=== PATIENT | male | born 1945 | race Caucasian/White ===

== ENCOUNTER 2016-11-02 19:29 | Inpatient (IN) | payer BC, MEDICARE ==
--- NOTE | 2016-11-02 20:13 | ED Physician Documentation ---
PD HPI CHEST PAIN - Stated complaint Stated Complaint: CHEST PX - Chief complaint Chief Complaint: Cardiac - History obtained from History obtained from: Patient, Family () - History of Present Illness Timing - onset: How many hours ago (2-3), Today Timing - onset during: Rest (he had onset of epigastric/substernal pressure type discomfort at rest while lying down. [place] some nausea, was pale and sweaty per , and had persistent of the discomfort despite sitting up, trying some bicarb.) Timing - duration: Hours (2-3) Timing - details: Abrupt onset, Still present Quality: Pressure, Aching, Dull, Indigestion Location: Substernal, Epigastric Radiation: No: Jaw, Neck, Back Improved by: No: Rest Worsened by: No: Inspiration, Movement, Palpation Associated symptoms: Diaphoresis, Nausea, Feeling faint / dizzy. No: Shortness of air, Vomiting, General Weakness, Palpitations, Cough Similar symptoms before: Has not had sx before Recently seen: Not recently seen Review of Systems Constitutional: denies: Fever, Chills, Myalgias Nose: denies: Rhinorrhea / runny nose, Congestion Throat: denies: Sore throat Cardiac: reports: Chest pain / pressure. denies: Palpitations, Pedal edema, Calf pain Respiratory: denies: Dyspnea, Cough, Wheezing GI: reports: Nausea. denies: Vomiting, Diarrhea, Hematemesis, Bloody / black stool : denies: Dysuria, Frequency Skin: denies: Rash, Lesions Neurologic: denies: Generalized weakness, Focal weakness, Numbness Psychiatric: denies: Insomnia Endocrine: reports: Easy bruising / bleeding. denies: Weight loss Immunocompromised: denies: Immunocompromised PD PAST MEDICAL HISTORY - Past Medical History Cardiovascular: Atrial fibrillation Respiratory: Sleep apnea GI: Cholelithiasis Other Past Medical History: Prostate cancer 200- surgery and radiation - Present Medications Home Medications: Ambulatory Orders Medication Instructions Recorded Confirmed Cyclobenzaprine [Flexeril] 1 tab PO TID 11/02/16 11/02/16 Metoprolol Succinate 1 tab PO DAILY 11/02/16 11/02/16 Rivaroxaban [Xarelto] 20 mg PO DAILY 11/02/16 11/02/16 - Allergies Allergies/Adverse Reactions: Allergies Allergy/AdvReac Type Severity Reaction Status Date / Time No Known Drug Allergies Allergy Verified 11/02/16 19:45 - Social History Does the pt smoke?: No Smoking Status: Never smoker Does the pt drink ETOH?: Yes Does the pt have substance abuse?: No - Family History Family history: reports: CAD - Immunizations Immunizations are current?: Yes - POLST Patient has POLST: No PD ED PE NORMAL - Vitals Vital signs reviewed: Yes - General General: Alert and oriented X 3, Well developed/nourished, Other (appears uncomfortable, pale, and mildly diaphoretic. ) - HEENT HEENT: Ears normal, Moist mucous membranes, Pharynx benign - Neck Neck: Supple, no meningeal sign, No adenopathy - Cardiac Cardiac: RRR, No murmur, No rub - Respiratory Respiratory: No respiratory distress, Clear bilaterally - Abdomen Abdomen: Normal bowel sounds, Non distended, No organomegaly, Other (tender epigastric area without guarding nor percussion tenderness. ) - Back Back: No CVA TTP - Derm Derm: Warm and dry. 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, No motor deficit, Normal speech - Psych Psych: Normal mood Results - Vitals Vitals: Vital Signs - 24 hr 11/02/16 11/02/16 11/02/16 19:30 19:35 19:50 Temperature 36.8 C 35.6 C L Heart Rate 66 71 68 Respiratory 15 17 15 Rate Blood Pressure 161/87 H 161/87 H 153/75 H O2 Saturation 100 98 99 11/02/16 11/02/16 11/02/16 20:14 20:19 20:27 Temperature Heart Rate 65 63 66 Respiratory 17 12 18 Rate Blood Pressure 135/72 H 141/73 H 135/76 H O2 Saturation 100 99 97 11/02/16 11/02/16 11/02/16 20:34 20:45 21:04 Temperature Heart Rate 64 70 65 Respiratory 18 15 12 Rate Blood Pressure 126/77 126/77 114/65 O2 Saturation 96 95 94 11/02/16 11/02/16 11/02/16 21:17 21:43 22:55 Temperature Heart Rate 62 64 76 Respiratory 10 L 12 14 Rate Blood Pressure 116/65 103/70 133/79 H O2 Saturation 94 96 98 Oxygen O2 Source Room air - EKG (time done) presentation to ED Rhythm: NSR [place]: Normal Ischemia: Normal ST segments. No: ST elevation c/w ischemia, ST depression - Labs Labs: Laboratory Tests 11/02/16 11/02/16 11/02/16 19:40 19:40 19:40 WBC 10.1 RBC 5.47 Hgb 14.8 Hct 45.9 MCV 84.1 MCH 27.1 MCHC 32.3 RDW 13.4 Plt Count 212 MPV 9.3 Neut # 6.9 H Lymph # 2.0 [place] # 0.9 Eos # 0.2 Baso # 0.1 Absolute Nucleated RBC 0.00 Nucleated RBCs 0.0 Sodium 134 L Potassium 3.7 Chloride 100 L Carbon Dioxide 26 Anion Gap 8.0 BUN 16 Creatinine 1.0 Estimated GFR (MDRD) 74 L Glucose 151 H Calcium 8.9 Total Bilirubin 0.6 AST 23 ALT 21 Alkaline Phosphatase 69 Troponin I 0.05 B-Natriuretic Peptide Total Protein 7.2 Albumin 3.6 Globulin 3.6 Albumin/Globulin Ratio 1.0 Lipase 22 11/02/16 19:40 WBC RBC Hgb Hct MCV MCH MCHC RDW Plt Count MPV Neut # Lymph # [place] # Eos # Baso # Absolute Nucleated RBC Nucleated RBCs Sodium Potassium Chloride Carbon Dioxide Anion Gap BUN Creatinine Estimated GFR (MDRD) Glucose Calcium Total Bilirubin AST ALT Alkaline Phosphatase Troponin I B-Natriuretic Peptide 38 Total Protein Albumin Globulin Albumin/Globulin Ratio Lipase - Rads (name of study) chest Radiology: Prelim report reviewed (no acute process) PD MEDICAL DECISION MAKING - ED course Complexity details: reviewed results, re-evaluated patient (not improved with GI cocktail. NTG did provide some mild improvement but not significantly. Improved quite a bit with Zofran and Morphine. Recheck is still showing some tenderness in epigastric area without guarding. His color is better. Still concerned about AMI, but also consider gastric cause and would be concerning due to Xarelto. He needs to have serial H/H, Troponins, and monitoring. ), considered differential, d/w patient Departure - Departure Disposition: ED Place in Observation Clinical Impression: Chest pain, rule out acute myocardial infarction Chest pain Qualifiers: Chest pain type: precordial pain Qualified Code(s): R07.2 - Precordial pain Condition: Stable Record reviewed to determine appropriate education?: Yes
[2016-11-02] MEDS ORDERED: SODIUM CHLORIDE 0.9% 500 ML IV ONE (20:23)
[2016-11-02] MEDS ORDERED: MAG HYDROX/AL HYDROX/SIMETH 30 ML UDC PO STA (20:23)
[2016-11-02] MEDS ORDERED: LIDOCAINE VISCOUS 2% 15 ML UDC MM STA (20:23)
[2016-11-02] MEDS ORDERED: NITROGLYCERIN SL 0.4 MG TABLET SL STA (20:25)
[2016-11-02 20:31] LABS: BASOPHILS # (AUTO) 0.1 10^3/uL (0.0-0.1); BASOPHILS % (AUTO) 0.7 %; EOSINOPHILS # (AUTO) 0.2 10^3/uL (0.0-0.7); EOSINOPHILS % (AUTO) 2.4 %; HCT - HEMATOCRIT 45.9 % (42.0-52.0); HGB - HEMOGLOBIN 14.8 g/dL (14.0-18.0); LYMPHOCYTES % (AUTO) 19.6 %; MEAN CORPUSCULAR HEMOGLOBIN 27.1 pg (27.0-31.0); MEAN CORPUSCULAR HGB CONC 32.3 g/dL (32.0-36.0); MEAN CORPUSCULAR VOLUME 84.1 fL (80.0-94.0); MEAN PLATELET VOLUME 9.3 fL (7.4-11.4); MONOCYTES # (AUTO) 0.9 10^3/uL (0.0-1.0); MONOCYTES % (AUTO) 8.9 %; NEUTROPHILS # (AUTO) 6.9 10^3/uL (1.5-6.6); NEUTROPHILS % (AUTO) 68.4 %; RED BLOOD COUNT 5.47 10^6/uL (4.70-6.10); RED CELL DISTRIBUTION WIDTH 13.4 % (12.0-15.0); UNCORRECTED WHITE BLOOD COUNT 10.1 x10^3/uL; WHITE BLOOD COUNT 10.1 x10^3/uL (4.8-10.8)
[2016-11-02] MEDS ORDERED: NITROGLYCERIN SL 0.4 MG TABLET SL ONE (20:31)
[2016-11-02] MEDS ORDERED: MAG HYDROX/AL HYDROX/SIMETH 30 ML UDC ONE (20:32)
[2016-11-02] MEDS ORDERED: LIDOCAINE VISCOUS 2% 15 ML UDC MM ONE (20:32)
[2016-11-02 20:44] LABS: BILIRUBIN,TOTAL 0.6 mg/dL (0.2-1.0); CALCIUM 8.9 mg/dL (8.5-10.3); POTASSIUM 3.7 mmol/L (3.5-5.0); TOTAL PROTEIN 7.2 g/dL (6.7-8.2)
[2016-11-02] MEDS ORDERED: ONDANSETRON 4 MG/2 ML VIAL IVP STA (20:47)
[2016-11-02] MEDS ORDERED: MORPHINE 10 MG/ML VIAL IVP STA ×2 (20:48→21:27)
[2016-11-02] MEDS ORDERED: ONDANSETRON 4 MG/2 ML VIAL ONE (20:57)
[2016-11-02] MEDS ORDERED: MORPHINE 10 MG/ML VIAL ONE ×2 (20:57→21:44)
[2016-11-02] MEDS ORDERED: SODIUM CHLORIDE FLUSH 0.9% 10 ML SYRINGE IVP ONE (20:57)
--- NOTE | 2016-11-02 21:27 | XRAY Preliminary Report ---
Exam: XR Chest 1 View IMPRESSION: No acute pulmonary process. Suboptimal apical lordotic technique. [facility] SITE ID: [id number]
--- NOTE | 2016-11-02 21:29 | XRAY Report ---
EXAM: CHEST RADIOGRAPHY EXAM DATE: 11/02/2016 08:54 PM. CLINICAL HISTORY: Chest pain. COMPARISON: None. TECHNIQUE: 1 view. FINDINGS: Lungs/Pleura: No focal opacities evident. No pleural effusion. No pneumothorax. Mediastinum: Within exam limitations, cardiomediastinal contour is normal. Other: Apical lordotic technique. IMPRESSION: No acute pulmonary process. Suboptimal apical lordotic technique. [facility] Referring Provider Line: [phone] SITE ID: [id number]
[2016-11-02] MEDS ORDERED: ASPIRIN CHEW 81 MG TABLET PO ONE (22:46)
[2016-11-02] MEDS ORDERED: ACETAMINOPHEN 325 MG TABLET PO PRN (22:50)
[2016-11-02] MEDS ORDERED: ZOLPIDEM 5 MG TABLET PO PRN (22:50)
[2016-11-03] MEDS ORDERED: GI COCKTAIL 120 ML BOTTLE PO PRN (00:06)
[2016-11-03] MEDS ORDERED: METOPROLOL SUCCINATE 25 MG TABLET PO SCH ×2 (00:22→09:00)
[2016-11-03] MEDS: MORPHINE 2 MG/ML SYRINGE IVP PRN ×3 (00:43→10:35)
[2016-11-03] MEDS: PANTOPRAZOLE 40 MG VIAL IVP SCH ×2 (00:46→07:10)
[2016-11-03] MEDS: RIVAROXABAN 10 MG TABLET PO SCH ×2 (00:58→18:08)
--- NOTE | 2016-11-03 01:20 | HISTORY & PHYSICAL EXAMINATION ---
DATE OF ADMISSION: 11/02/2016 Please note that I did see the patient and completed history and physical prior to midnight. CHIEF COMPLAINT: Epigastric pain. HISTORY OF PRESENT ILLNESS: The patient is a 71-year-old white male with past medical history of hypertension and paroxysmal atrial fibrillation, taking metoprolol for rate control and on Xarelto therapeutic anticoagulation. The patient was diagnosed with atrial fibrillation in May 2016 at which time he underwent stress test and stress echocardiogram. He has not had a coronary angiography. 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 He reports that he rarely converts to atrial fibrillation and most times he remains in sinus rhythm. He does not have any recent complaints regarding to atrial fibrillation. On the day of admission on 11/02/2016 around 3:30 p.m. the patient was sitting at his desk working on his laptop in his home when he developed sudden onset of nausea and epigastric pain. The pain lasted for a couple of hours. The patient became pale and diaphoretic. Pain was 7/10 in intensity. It was not resolving. Therefore, the patient's drove him to the ER. The pain was localized, did not radiate. The patient did not have chest pain. He noted not eating regular meals during the past few days. He had been moving recently and carried heavy boxes which gave him back pain. He has gallstones per his knowledge, but did not have prior episodes of biliary colic or history of cholecystitis. Upon presentation to the ER, the patient looked acutely ill per ER physician's assessment. The patient received several IV morphine doses and he also received viscous lidocaine. The patient reported that his symptoms resolved after he received the morphine and the lidocaine. The ER workup was unremarkable and included a negative chest x-ray, EKG showing no acute abnormality, troponin 0.05 , liver function tests were unremarkable and lipase was normal. Blood glucose was 150. Hematology panel was unremarkable as well. When I examined the patient, he felt being almost back to his normal state of health. He had perhaps very mild epigastric pain still and mild nausea. Denied chest pain or shortness of breath. PAST MEDICAL HISTORY: 1. Hypertension. 2. Paroxysmal atrial fibrillation. 3. Recent back pain secondary to carrying heavy weights. 4. Obstructive sleep apnea, undiagnosed pending outpatient workup. 5. Gallstones. OUTPATIENT MEDICATIONS: Included Xarelto, metoprolol, and Flexeril. ALLERGIES: NO KNOWN DRUG ALLERGIES. FAMILY HISTORY: The patient's mother is alive and well at age 99. Father of cerebrovascular accident in his 80s. SOCIAL HISTORY: The patient does not smoke, drinks alcohol rarely. His primary care physician is at [facility]. He recently moved to [facility]. CODE STATUS: FULL CODE. REVIEW OF SYSTEMS: Please see pertinent positives listed above as per History of Present Illness. The patient did not report additional complaints on the 12- point review. PHYSICAL EXAMINATION: VITAL SIGNS: Heart rate between 60 and 70, blood pressure 116/65, respiratory rate between 12 and 15. Oxygen saturation 98% on room air. GENERAL: The patient is a well-developed male who was not in distress. CARDIOVASCULAR: S1, S2, regular rate and rhythm. I could not hear a pathologic murmur. RESPIRATORY: Clear to auscultation bilaterally without wheezes or crackles. SKIN: No jaundice, no pallor, no diaphoresis. MUSCULOSKELETAL: Truncal obesity and thick neck. ABDOMEN: Obese, distended, nontender. No guarding or rebound. EXTREMITIES: No lymphedema. NEUROLOGIC: Alert, oriented, nonfocal. PSYCH: Cooperative, pleasant to talk to. ASSESSMENT: The patient is a 71-year-old male with cardiac risk factors including atrial fibrillation, age gender, and hypertension. It is reassuring considering his background that a few months ago in May he had a negative stress test and a normal echocardiogram. He is on beta-siddhartha, which is obviously cardioprotective and he is on therapeutic anticoagulation with Xarelto. I think this patient having acute coronary syndrome is not likely, especially given his negative ER workup with a negative troponin and unremarkable EKG. When he presented today he was not in atrial fibrillation and throughout his ER stay he remained in sinus rhythm. The pain the patient complains of is really epigastric pain, nonradiating, and resolved after morphine and lidocaine/GI cocktail given. I suspect that the patient likely has reflux disease or pain of GI origin. His liver function tests and lipase were normal. The patient might have mild gastritis. PLAN/ORDERS: We will complete a rapid cardiac rule out, accepted the patient under observation status. Will cycle cardiac markers. Monitor on telemetry. Continue metoprolol and Xarelto. To treat a presumed gastritis and gastroesophageal reflux I will order Protonix and GI cocktail. Deep venous thrombosis prophylaxis not needed as the patient is on therapeutic anticoagulation. Further plan will depend on the clinical course. Time spent in the care of this patient was 60 minutes. JOB #: [id number] EXT JOB #:[id number] [email or web address]
[2016-11-03] MEDS: SODIUM CHLORIDE FLUSH 0.9% 10 ML SYRINGE IVP SCH ×3 (04:05→20:27)
[2016-11-03] MEDS ORDERED: NON FORMULARY MED (Rivaroxaban [Xarelto] 20 MG) PO SCH (09:00)
[2016-11-03] MEDS ORDERED: ASPIRIN EC 81 MG TABLET PO SCH (09:00)
[2016-11-03] MEDS ORDERED: POLYETHYLENE GLYCOL 3350 17 GM PACKET PO SCH (09:00)
[2016-11-03 14:17] LABS: BILIRUBIN,URINE NEGATIVE (NEGATIVE); PH,URINE 5.5 PH (5.0-7.5)
[2016-11-03 14:30] LABS: UR CULTURE IF IND NOT INDICATED
[2016-11-03] MEDS ORDERED: traMADol 50 MG TABLET PO PRN (15:47)
[2016-11-03] MEDS: KETOROLAC 15 MG/ML VIAL IVP PRN ×2 (15:57→23:48)
[2016-11-03] MEDS ORDERED: IOPAMIDOL-300 100 ML VIAL ONE (16:29)
[2016-11-03] MEDS ORDERED: RIVAROXABAN 10 MG TABLET PO SCH (17:00)
[2016-11-03] MEDS ORDERED: IOPAMIDOL-300 100 ML VIAL IVP ONE (17:20)
--- NOTE | 2016-11-03 17:37 | CT Preliminary Report ---
Exam: CT Abdomen/Pelvis W/ IMPRESSION: 1. Cholelithiasis with subtle evidence of cholecystitis. 2. Tiny nonobstructing left renal stone. [facility] SITE ID: [id number]
--- NOTE | 2016-11-03 17:39 | CT Report ---
EXAM: CT ABDOMEN AND PELVIS EXAM DATE: 11/03/2016 05:00 PM. CLINICAL HISTORY: Pain. COMPARISONS: None. TECHNIQUE: Routine helical CT imaging was performed through the abdomen and pelvis. IV contrast: 100 cc Isovue-300. Enteric contrast: No. Reconstructions: Coronal and sagittal. In accordance with CT protocol optimization, one or more of the following dose reduction techniques w ere utilized for this exam: automated exposure control, adjustment of mA and/or KV based on patient s ize, or use of iterative reconstructive technique. FINDINGS: Lung Bases: Mild bibasilar atelectasis with pleural thickening. No consolidation or effusion. Liver: Normal. No masses. Gallbladder/Bile Ducts: Gallstone measuring about 7 mm in the gallbladder neck with subtle hazy ill-d efinition of gallbladder wall and immediately adjacent fat, suggesting inflammation. No ductal dilati on. Spleen: Normal. Pancreas: Normal. Adrenal Glands: Normal. Kidneys: Nonobstructing 2 mm left upper pole stone. Otherwise unremarkable. No ureteral stones or hyd ronephrosis. Peritoneal Cavity/Bowel: Mildly prominent stomach, fluid-filled. Unremarkable bowel loops. No free fl uid, free air, or lymphadenopathy. The appendix is well visualized and normal. Pelvic Organs: Normal. The bladder and visualized pelvic organs are within normal limits. Vasculature: No aneurysms or other significant abnormality. Bones: No significant abnormality. Other: None. IMPRESSION: 1. Cholelithiasis with subtle evidence of cholecystitis. 2. Tiny nonobstructing left renal stone. [facility] Referring Provider Line: [phone] SITE ID: [id number]
--- NOTE | 2016-11-03 18:03 | PROVIDER PROGRESS NOTE ---
Subjective - Prog Note Date Prog Note Date: 11/03/16 Prog Note Time: 18:01 - Subjective Pt reports feeling: No change Subjective: Patient states his pain is now in the upper right quadrant and radiates to the upper right back and then in the lower right and left side of the lower back. He had a sharp pain in the mid epigastric region last night and alot of gas with it. His pain is somewhat better when he takes the GI cocktail. He was given ultram and toradol that did seem to help a little. no chest pain now or shortness of breath Time spent on assessment and evaluation was 45 minutes for planning and assessment Current Medications - Current Medications Current Medications: Abnormal Lab Results 11/02/16 11/02/16 11/03/16 19:40 19:40 13:50 Neut # 6.9 10^3/uL H 10^3/uL (1.5-6.6) Sodium 134 mmol/L L mmol/L (135-145) Chloride 100 mmol/L L mmol/L (101-111) Estimated GFR (MDRD) 74 L (>89) Glucose 151 mg/dL H mg/dL (70-100) Ur Specific [place] >=1.030 H (1.002-1.030) Objective - Vital Signs/Intake & Output Reviewed Vital Signs: Yes Vital Signs: Vital Signs x48h Temp Pulse Resp BP Pulse Ox 11/03/16 16:15 36.8 C 103 H 20 155/84 H 94 11/03/16 10:29 36.7 C 111 H 12 142/82 H 93 Intake & Output: Intake & Output 10/31/16 11/01/16 11/02/16 11/03/16 23:59 23:59 23:59 23:59 Intake Total 1060 Balance 1060 - Objective General Appearance: positive: No acute distress, Alert Eyes Bilateral: positive: Normal inspection, PERRL ENT: positive: ENT inspection nml, Pharynx nml, No signs of dehydration Neck: positive: Nml inspection, Thyroid nml, No JVD, Trachea midline Respiratory: positive: Chest non-tender, No respiratory distress, Breath sounds nml Cardiovascular: positive: Regular rate & rhythm, No murmur, No gallop Abdomen: positive: No distention, Tenderness (to right upper quadrant), Other ( obese). negative: Guarding, Rebound, Hepatomegaly Rectal: positive: Non-tender Back: positive: Nml inspection, CVA tenderness (R) Skin: positive: Color nml, No rash, Warm, Dry Extremities: positive: Non-tender, Full ROM Neurologic/Psychiatric: positive: Oriented x3, CN's nml (2-12), Motor nml, Sensation nml - Lab Results Fish Bones: 11/02/16 19:40 11/02/16 19:40 Other Labs: Lab Results x24hrs 11/03/16 11/03/16 11/03/16 Range/Units 13:50 13:38 09:54 ESR (0-20) mm/Hr Troponin I < 0.04 (<0.49) ng/mL C-React Prot High Sens mg/L Amylase 39 (28-100) U/L Urine Color DARK YELLOW Urine Clarity CLEAR (CLEAR) Urine pH 5.5 (5.0-7.5) PH Ur Specific [place] >=1.030 H (1.002-1.030) Urine Protein TRACE (NEGATIVE) mg/dL Urine Glucose (UA) NEGATIVE (NEGATIVE) mg/dL Urine Ketones NEGATIVE (NEGATIVE) mg/dL Urine Occult Blood TRACE-LYSE (NEGATIVE) Urine Nitrite NEGATIVE (NEGATIVE) Urine Bilirubin NEGATIVE (NEGATIVE) Urine Urobilinogen 1 (NORMAL) (NORMAL) E.U./dL Ur Leukocyte Esterase NEGATIVE (NEGATIVE) Urine RBC 0-5 (0-5) /HPF Urine WBC 4-5 (0-3) /HPF Ur Squamous Epith Cells RARE Squamous (<= Few) Urine Bacteria Few (None Seen) /HPF Urine Mucus Marked Strands Urine Culture Comments NOT INDICATED 11/03/16 11/03/16 11/03/16 Range/Units 04:00 04:00 04:00 ESR 7 (0-20) mm/Hr Troponin I < 0.04 (<0.49) ng/mL C-React Prot High Sens 16.7 mg/L Amylase (28-100) U/L Urine Color Urine Clarity (CLEAR) Urine pH (5.0-7.5) PH Ur Specific [place] (1.002-1.030) Urine Protein (NEGATIVE) mg/dL Urine Glucose (UA) (NEGATIVE) mg/dL Urine Ketones (NEGATIVE) mg/dL Urine Occult Blood (NEGATIVE) Urine Nitrite (NEGATIVE) Urine Bilirubin (NEGATIVE) Urine Urobilinogen (NORMAL) E.U./dL Ur Leukocyte Esterase (NEGATIVE) Urine RBC (0-5) /HPF Urine WBC (0-3) /HPF Ur Squamous Epith Cells (<= Few) Urine Bacteria (None Seen) /HPF Urine Mucus Urine Culture Comments - Diagnostic Imaging Diagnostic Imaging Results: positive: Prelim report reviewed Diagnostic Imaging Comments: CT of Abdomen shows cholelithiasis possible cholecystitis. nonobstructing left kidney stone Assessment/Plan - Problem List (1) Cholelithiasis and acute cholecystitis without obstruction Impression: acute. will get a surgical consult for possible cholecystitis workup. he does not have a elevated white count or fever but is symptomatic. IVF are infusing and will monitor CBC and electrolytes. pain management with toradol and morphine (2) Kidney stone on left side Impression: acute. patient also has low backpain but no urinary symptoms. UA was negative for UTI or blood. toradol for pain and IVF for hydration. patient might have passes a stone recently. stone in left kidney is nonobstructing (3) Obesity (BMI 30-39.9) Impression: chronic. patient has a "horrible diet" per patient and will need some counseling on diet. daily weight and will need low fat cardiac diet.
[2016-11-03] MEDS ORDERED: diazePAM INJ 5 MG/ML SYRINGE IVP SCH (19:00)
[2016-11-03] MEDS ORDERED: diazePAM INJ 5 MG/ML SYRINGE ONE (19:16)
[2016-11-03] MEDS: METOPROLOL SUCCINATE 25 MG TABLET PO SCH (20:27)
[2016-11-03] MEDS: SODIUM CHLORIDE FLUSH 0.9% 10 ML SYRINGE IVP PRN (23:48)
[2016-11-04 05:38] LABS: BASOPHILS % (AUTO) 0.3 %; EOSINOPHILS % (AUTO) 0.1 %; HCT - HEMATOCRIT 43.3 % (42.0-52.0); HGB - HEMOGLOBIN 14.3 g/dL (14.0-18.0); LYMPHOCYTES % (AUTO) 7.5 %; MEAN CORPUSCULAR HEMOGLOBIN 27.4 pg (27.0-31.0); MEAN CORPUSCULAR HGB CONC 32.9 g/dL (32.0-36.0); MEAN CORPUSCULAR VOLUME 83.2 fL (80.0-94.0); MEAN PLATELET VOLUME 8.8 fL (7.4-11.4); MONOCYTES % (AUTO) 9.6 %; NEUTROPHILS % (AUTO) 82.5 %; RED CELL DISTRIBUTION WIDTH 13.4 % (12.0-15.0); UNCORRECTED WHITE BLOOD COUNT 19.1 x10^3/uL; WHITE BLOOD COUNT 19.1 x10^3/uL (4.8-10.8)
[2016-11-04 05:50] LABS: ALBUMIN/GLOBULIN RATIO 0.9 (1.0-2.2); BILIRUBIN,TOTAL 1.9 mg/dL (0.2-1.0); CALCIUM 8.5 mg/dL (8.5-10.3); POTASSIUM 3.8 mmol/L (3.5-5.0)
[2016-11-04] MEDS: PANTOPRAZOLE 40 MG VIAL IVP SCH (06:30)
[2016-11-04] MEDS: SODIUM CHLORIDE FLUSH 0.9% 10 ML SYRINGE IVP SCH ×3 (06:30→20:03)
[2016-11-04] MEDS: KETOROLAC 15 MG/ML VIAL IVP PRN (06:30)
[2016-11-04 06:36] LABS: BAND NEUTROPHILS % (MANUAL) 3 %; LYMPHOCYTES % (MANUAL) 5 %; NEUTROPHILS % (MANUAL) 83 %; PLATELET ESTIMATE, MANUAL NORMAL (130-450,000) (NORMAL); PLATELET MORPHOLOGY NORMAL APPEARANCE (NORMAL); TOTAL CELLS COUNTED 100
[2016-11-04 06:37] LABS: NP AUTO DIFFERENTIAL? YES; NP MAN DIFFERENTIAL? NO
[2016-11-04] MEDS: METOPROLOL SUCCINATE 25 MG TABLET PO SCH (06:45)
[2016-11-04] MEDS ORDERED: diltiaZEM INJ 5 MG/ML VIAL IVP ONE (07:15)
[2016-11-04] MEDS ORDERED: METOPROLOL 5 MG/5 ML VIAL IVP PRN (07:16)
[2016-11-04] MEDS ORDERED: SODIUM CHLORIDE 0.9% 500 ML IV ONE ×2 (08:11→16:24)
[2016-11-04] MEDS: PIPERACILLIN/TAZOBACTAM 4.5 GM in SODIUM CHLORIDE 0.9% MINIBAG 100 ML IV SCH ×3 (08:18→21:10)
[2016-11-04] MEDS ORDERED: ACETAMINOPHEN 1,000 MG/100 ML 100 ML IV ONE (09:00)
[2016-11-04] MEDS: LACTATED RINGERS 1,000 ML IV SCH ×2 (10:04→21:28)
[2016-11-04] MEDS ORDERED: DIGOXIN 125 MCG TABLET PO STA (12:55)
[2016-11-04 13:16] LABS: AMYLASE 23 U/L (28-100); LIPASE 18 U/L (22-51)
--- NOTE | 2016-11-04 13:50 | PROVIDER PROGRESS NOTE ---
Subjective - Prog Note Date Prog Note Date: 11/04/16 Prog Note Time: 13:47 - Subjective Pt reports feeling: Worse Subjective: Patient seen at bedside and he has some tenderness to the right upper and mid flank and abdomen. He states he has been a little clammy and blood pressure has been low per nursing. He has been tachycardic and EKG shows Atrial fibrillation. He has no nausea and states his chest discomfort has gone away. He has been NPO since last night. He states he spoke with his to let her know he may have surgery today. She is supposed to be coming in to the hospital after lunch. He reports no events overnight. He has no shortness of breath and no chest pain at this time. waiting to see the surgeon. Current Medications - Current Medications Current Medications: Active Medications Generic Name Dose Route Start Last Admin Trade Name Freq PRN Reason Stop Dose Admin Hydromorphone HCl 1 mg 11/04/16 08:07 Dilaudid Inj IVP Q2HR PRN PAIN Piperacillin Sod/Tazobactam 100 mls @ 200 mls/hr 11/04/16 08:00 11/04/16 13:25 Sod 4.5 gm/ Sodium Chloride IV 200 mls/hr Q6H MOLLY Administration Lactated Ringer's 1,000 mls @ 125 mls/hr 11/04/16 09:00 11/04/16 10:04 Lr IV 125 mls/hr .Q8H MOLLY Administration Metoprolol Tartrate 5 mg 11/04/16 07:16 Lopressor Inj IVP Q6H PRN Hypertensive Emergency Morphine Sulfate 2 mg 11/02/16 22:46 11/03/16 10:35 Morphine IVP 2 mg Q2HR PRN Administration Chest Pain Ondansetron HCl 4 mg 11/02/16 22:50 Zofran Inj IVP Q6HR PRN Nausea / Vomiting Pantoprazole Sodium 40 mg 11/02/16 23:00 11/04/16 06:30 Protonix IVP 40 mg QDAC MOLLY Administration Sodium Chloride 10 ml 11/02/16 22:50 11/03/16 23:48 Normal Saline Flush 0.9% IVP 10 ml PRN PRN Administration NEEDED PER PROVIDER ORDERS Sodium Chloride 10 ml 11/03/16 06:00 11/04/16 08:45 Normal Saline Flush 0.9% IVP Not Given Q8HR MOLLY Cyclobenzaprine [Flexeril] 10 mg PO TID PRN 11/02/16 Metoprolol Succinate 25 mg PO DAILY PM 11/02/16 Rivaroxaban [Xarelto] 20 mg PO DAILY 11/02/16 Objective - Vital Signs/Intake & Output Reviewed Vital Signs: Yes Vital Signs: Vital Signs x48h Temp Pulse Resp BP BP Pulse Ox 11/04/16 11:43 36.8 C 130 H 16 90/71 94 11/04/16 08:30 155 H 117/71 11/04/16 08:20 155 H 101/72 11/04/16 08:15 36.7 C 90 18 99/65 93 11/04/16 08:10 140 H 102/62 11/04/16 08:02 55 L 84/68 L 11/04/16 07:56 102/77 Intake & Output: Intake & Output 11/01/16 11/02/16 11/03/16 11/04/16 23:59 23:59 23:59 23:59 Intake Total 620 Balance 620 - Objective General Appearance: positive: No acute distress, Alert Eyes Bilateral: positive: Normal inspection, PERRL, EOMI ENT: positive: ENT inspection nml, Pharynx nml, No signs of dehydration Neck: positive: Nml inspection, Thyroid nml, No JVD, Trachea midline Respiratory: positive: Chest non-tender, No respiratory distress, Breath sounds nml Cardiovascular: positive: No murmur, No gallop, Irregularly irregular, Tachycardia. negative: JVD present Abdomen: positive: Tenderness (right mid and upper flank and abdomen with palpation). negative: Guarding, Rebound, Mass Rectal: positive: Non-tender Back: positive: Nml inspection, Other (pain with palpation to lower back right and left side) Skin: positive: Color nml, No rash, Warm, Dry Extremities: positive: Non-tender, Full ROM, Nml appearance, No pedal edema Neurologic/Psychiatric: positive: Oriented x3, CN's nml (2-12), Motor nml, Sensation nml, Mood/affect nml - Lab Results Fish Bones: 11/04/16 05:08 11/04/16 05:08 Other Labs: Lab Results x24hrs 11/04/16 11/04/16 11/04/16 Range/Units 08:55 05:08 05:08 WBC (4.8-10.8) x10^3/uL RBC (4.70-6.10) 10^6/uL Hgb (14.0-18.0) g/dL Hct (42.0-52.0) % MCV (80.0-94.0) fL MCH (27.0-31.0) pg MCHC (32.0-36.0) g/dL RDW (12.0-15.0) % Plt Count (130-450) 10^3/uL MPV (7.4-11.4) fL Neut # Lymph # [place] # Eos # Baso # Absolute Nucleated RBC Total Counted Band Neuts % (Manual) (0 - 10) % Reactive Lymphs % (Man) % Neutrophils # (Manual) (1.5-6.6) 10^3/uL Lymphocytes # (Manual) (1.5-3.5) 10^3/uL Monocytes # (Manual) (0.0-1.0) 10^3/uL Nucleated RBCs Differential Comment Platelet Estimate (NORMAL) Platelet Morphology (NORMAL) RBC Morph Micro Appear (NORMAL) Sodium 135 (135-145) mmol/L Potassium 3.8 (3.5-5.0) mmol/L Chloride 102 (101-111) mmol/L Carbon Dioxide 26 (21-32) mmol/L Anion Gap 7.0 (6-13) BUN 21 H (6-20) mg/dL Creatinine 1.0 (0.6-1.2) mg/dL Estimated GFR (MDRD) 74 L (>89) Glucose 136 H (70-100) mg/dL Lactic Acid 1.2 (0.5-2.2) mmol/L Calcium 8.5 (8.5-10.3) mg/dL Total Bilirubin 1.9 H (0.2-1.0) mg/dL AST 34 (10-42) IU/L ALT 39 (10-60) IU/L Alkaline Phosphatase 79 (42-121) IU/L Total Protein 7.0 (6.7-8.2) g/dL Albumin 3.4 (3.2-5.5) g/dL Globulin 3.6 (2.1-4.2) g/dL Albumin/Globulin Ratio 0.9 L (1.0-2.2) Amylase 23 L (28-100) U/L Lipase 18 L (22-51) U/L 11/04/16 Range/Units 05:08 WBC 19.1 H (4.8-10.8) x10^3/uL RBC 5.20 (4.70-6.10) 10^6/uL Hgb 14.3 (14.0-18.0) g/dL Hct 43.3 (42.0-52.0) % MCV 83.2 (80.0-94.0) fL MCH 27.4 (27.0-31.0) pg MCHC 32.9 (32.0-36.0) g/dL RDW 13.4 (12.0-15.0) % Plt Count 160 (130-450) 10^3/uL MPV 8.8 (7.4-11.4) fL Neut # Not Reportable Lymph # Not Reportable [place] # Not Reportable Eos # Not Reportable Baso # Not Reportable Absolute Nucleated RBC Not Reportable Total Counted 100 Band Neuts % (Manual) 3 (0 - 10) % Reactive Lymphs % (Man) 7 % Neutrophils # (Manual) 16.4 H (1.5-6.6) 10^3/uL Lymphocytes # (Manual) 2.3 (1.5-3.5) 10^3/uL Monocytes # (Manual) 0.4 (0.0-1.0) 10^3/uL Nucleated RBCs Not Reportable Differential Comment MANUAL DIFFERENTIAL Platelet Estimate NORMAL (130-450,000) (NORMAL) Platelet Morphology NORMAL APPEARANCE (NORMAL) RBC Morph Micro Appear NORMAL APPEARANCE (NORMAL) Sodium (135-145) mmol/L Potassium (3.5-5.0) mmol/L Chloride (101-111) mmol/L Carbon Dioxide (21-32) mmol/L Anion Gap (6-13) BUN (6-20) mg/dL Creatinine (0.6-1.2) mg/dL Estimated GFR (MDRD) (>89) Glucose (70-100) mg/dL Lactic Acid (0.5-2.2) mmol/L Calcium (8.5-10.3) mg/dL Total Bilirubin (0.2-1.0) mg/dL AST (10-42) IU/L ALT (10-60) IU/L Alkaline Phosphatase (42-121) IU/L Total Protein (6.7-8.2) g/dL Albumin (3.2-5.5) g/dL Globulin (2.1-4.2) g/dL Albumin/Globulin Ratio (1.0-2.2) Amylase (28-100) U/L Lipase (22-51) U/L - Diagnostic Imaging Diagnostic Imaging Results: positive: Final report reviewed Diagnostic Imaging Comments: CT of abdomen and pelvis with impression showing cholelithiasis with mild cholecystitis. - Other Results/Comments Other Results/Comments: ssessment/Plan - Problem List (1) Cholelithiasis and acute mild cholecystitis without obstruction Impression: acute. will get a surgical consult for [place] [id number] with chills and hypotensive. lactic acid is normal. symptomatic with tachycardia and hypotensive. Patient went into Afib this morning. IVF NS changed to LR are infusing and will monitor CBC and electrolytes. pain management with dilaudid and morphine IV (2) Kidney stone on left side Impression: acute. patient also has low backpain but no urinary symptoms. UA was negative for UTI or blood. IVF for hydration. patient might have passed a stone recently. stone in left kidney is nonobstructing (3) Obesity (BMI 30-39.9) Impression: chronic. patient has a "horrible diet" per patient and will need some counseling on diet. daily weight and will need low fat cardiac diet. NPO at midnight for possible surgical today (4) Acute on chronic atrial fibrillation, RVR Impression: Patient is on Xarelto. holding for possible surgery today. gave digoxin for heart rate since patient is hypotensive. IVF bolus given. continue to monitor on telemetry. Time spent on assessment and planning was 50 minutes
[2016-11-04] MEDS ORDERED: DIGOXIN 125 MCG TABLET PO ONE (16:45)
[2016-11-04] MEDS ORDERED: LACTATED RINGERS 1,000 ML IV ONE ×2 (16:50→17:50)
[2016-11-04] MEDS ORDERED: VERAPAMIL 5 MG/2 ML VIAL IVP ONE (17:30)
[2016-11-04] MEDS ORDERED: MIDAZOLAM 2 MG/2 ML VIAL IVP ONE (18:00)
[2016-11-04] MEDS ORDERED: NEOSTIGMINE 1 MG/1 ML 10 ML MDV IVP ONE (18:00)
[2016-11-04] MEDS ORDERED: PROPOFOL 200 MG/20 ML VIAL IVP ONE (18:00)
[2016-11-04] MEDS ORDERED: SUCCINYLCHOLINE 200 MG/10 ML VIAL IVP ONE (18:00)
[2016-11-04] MEDS ORDERED: ESMOLOL 100 MG/10 ML VIAL IVP ONE (18:00)
[2016-11-04] MEDS ORDERED: fentaNYL 100 MCG/2 ML VIAL IVP ONE (18:00)
[2016-11-04] MEDS ORDERED: LIDOCAINE-MPF 2% 5 ML VIAL IM ONE (18:00)
[2016-11-04] MEDS ORDERED: ceFAZolin 1 GM VIAL IV ONE (18:00)
[2016-11-04] MEDS ORDERED: GLYCOPYRROLATE 1 MG/5 ML VIAL IVP ONE (18:00)
[2016-11-04] MEDS ORDERED: ROCURONIUM 50 MG/5 ML VIAL IVP ONE (18:00)
[2016-11-04] MEDS ORDERED: BUPIVACAINE 0.25%-EPI 1:200000 PF 10 ML VIAL SUBQ ONE (18:18)
--- NOTE | 2016-11-04 18:50 | PROVIDER PROGRESS NOTE ---
Subjective - Prog Note Date Prog Note Date: 11/04/16 Prog Note Time: 18:42 - Subjective Subjective: The patient was taken to the operating room since we suspected cholecystitis. Once intubated,, his heart rate started to climb especially with insufflation. He started in the 120s 130s. With insufflation and the start of the laparoscopic cholecystectomy his heart rate shot up into the 150s. His systolic is gone to the 90s. He has been given esmolol, digoxin 0.5, and finally verapamil IV push with no response. As such the surgeon decided to stop the case. The patient has a cholecystostomy tube to drain the necrotic gallbladder that was seen. They are asking me to take over the case with regards to management of the atrial fibrillation. I have transferred the patient to the unit and have started diltiazem drip. Since he is mildly hypotensive, I will also start levo fed. A total of 30 minutes has been spent seeing the patient in the OR, and recovery in ICU Current Medications - Current Medications Current Medications: Active Medications Hydromorphone HCl (Dilaudid Inj) 1 mg IVP Q2HR PRN PRN Reason: PAIN Piperacillin Sod/Tazobactam (Sod 4.5 gm/ Sodium Chloride) 100 mls @ 200 mls/hr IV Q6H MOLLY Last Admin: 11/04/16 13:25 Dose: 200 mls/hr Lactated Ringer's (Lr) 1,000 mls @ 125 mls/hr IV .Q8H MOLLY Last Admin: 11/04/16 10:04 Dose: 125 mls/hr Diltiazem HCl 125 mg/ Dextrose 125 mls @ 5 mls/hr IV .Q25H MOLLY; 5 MG/HR PRN Reason: Protocol Norepinephrine Bitartrate 8 mg (/ Dextrose) 250 mls @ 15 mls/hr IV .[id number] MOLLY ; 8 MCG/MIN PRN Reason: Protocol Metoprolol Tartrate (Lopressor Inj) 5 mg IVP Q6H PRN PRN Reason: Hypertensive Emergency Morphine Sulfate (Morphine) 2 mg IVP Q2HR PRN PRN Reason: Chest Pain Last Admin: 11/03/16 10:35 Dose: 2 mg Ondansetron HCl (Zofran Inj) 4 mg IVP Q6HR PRN PRN Reason: Nausea / Vomiting Pantoprazole Sodium (Protonix) 40 mg IVP QDAC [facility] Last Admin: 11/04/16 06:30 Dose: 40 mg Sodium Chloride (Normal Saline Flush 0.9%) 10 ml IVP PRN PRN PRN Reason: NEEDED PER PROVIDER ORDERS Last Admin: 11/03/16 23:48 Dose: 10 ml Sodium Chloride (Normal Saline Flush 0.9%) 10 ml IVP Q8HR [facility] Last Admin: 11/04/16 08:45 Dose: Not Given Cyclobenzaprine [Flexeril] 10 mg PO TID PRN 11/02/16 Metoprolol Succinate 25 mg PO DAILY PM 11/02/16 Rivaroxaban [Xarelto] 20 mg PO DAILY 11/02/16 Objective - Vital Signs/Intake & Output Reviewed Vital Signs: Yes Vital Signs: Vital Signs Temp Pulse BP Pulse Ox 11/04/16 15:47 36.7 C 161 H 115/67 98 Intake & Output: Intake & Output 11/01/16 11/02/16 11/03/16 11/04/16 23:59 23:59 23:59 23:59 Intake Total 620 1211 Balance 620 1211 - Objective General Appearance: positive: Other (intubated, sedated obese white male with IV in forearms, cholecystostomy tube in RUQ) Eyes Bilateral: positive: PERRL ENT: positive: Other (ET tube in place) Neck: positive: No JVD. negative: Stiff neck, Carotid bruit Respiratory: positive: Other (barrel chest with clear lungs anteriorly) Cardiovascular: positive: Irregularly irregular, Tachycardia. negative: Gallop/ S4, Friction rub Abdomen: positive: Abnml bowel sounds (none present right now), Other ( distended from the insuflation) Skin: positive: Warm, Dry Neurologic/Psychiatric: positive: Other (still intubated and asleep) - Lab Results Fish Bones: 11/05/16 02:55 11/05/16 02:55 Other Labs: Lab Results x24hrs 11/04/16 11/04/16 11/04/16 Range/Units 08:55 05:08 05:08 WBC (4.8-10.8) x10^3/uL RBC (4.70-6.10) 10^6/uL Hgb (14.0-18.0) g/dL Hct (42.0-52.0) % MCV (80.0-94.0) fL MCH (27.0-31.0) pg MCHC (32.0-36.0) g/dL RDW (12.0-15.0) % Plt Count (130-450) 10^3/uL MPV (7.4-11.4) fL Neut # Lymph # [place] # Eos # Baso # Absolute Nucleated RBC Total Counted Band Neuts % (Manual) (0 - 10) % Reactive Lymphs % (Man) % Neutrophils # (Manual) (1.5-6.6) 10^3/uL Lymphocytes # (Manual) (1.5-3.5) 10^3/uL Monocytes # (Manual) (0.0-1.0) 10^3/uL Nucleated RBCs Differential Comment Platelet Estimate (NORMAL) Platelet Morphology (NORMAL) RBC Morph Micro Appear (NORMAL) Sodium 135 (135-145) mmol/L Potassium 3.8 (3.5-5.0) mmol/L Chloride 102 (101-111) mmol/L Carbon Dioxide 26 (21-32) mmol/L Anion Gap 7.0 (6-13) BUN 21 H (6-20) mg/dL Creatinine 1.0 (0.6-1.2) mg/dL Estimated GFR (MDRD) 74 L (>89) Glucose 136 H (70-100) mg/dL Lactic Acid 1.2 (0.5-2.2) mmol/L Calcium 8.5 (8.5-10.3) mg/dL Total Bilirubin 1.9 H (0.2-1.0) mg/dL AST 34 (10-42) IU/L ALT 39 (10-60) IU/L Alkaline Phosphatase 79 (42-121) IU/L Total Protein 7.0 (6.7-8.2) g/dL Albumin 3.4 (3.2-5.5) g/dL Globulin 3.6 (2.1-4.2) g/dL Albumin/Globulin Ratio 0.9 L (1.0-2.2) Amylase 23 L (28-100) U/L Lipase 18 L (22-51) U/L 11/04/16 Range/Units 05:08 WBC 19.1 H (4.8-10.8) x10^3/uL RBC 5.20 (4.70-6.10) 10^6/uL Hgb 14.3 (14.0-18.0) g/dL Hct 43.3 (42.0-52.0) % MCV 83.2 (80.0-94.0) fL MCH 27.4 (27.0-31.0) pg MCHC 32.9 (32.0-36.0) g/dL RDW 13.4 (12.0-15.0) % Plt Count 160 (130-450) 10^3/uL MPV 8.8 (7.4-11.4) fL Neut # Not Reportable Lymph # Not Reportable [place] # Not Reportable Eos # Not Reportable Baso # Not Reportable Absolute Nucleated RBC Not Reportable Total Counted 100 Band Neuts % (Manual) 3 (0 - 10) % Reactive Lymphs % (Man) 7 % Neutrophils # (Manual) 16.4 H (1.5-6.6) 10^3/uL Lymphocytes # (Manual) 2.3 (1.5-3.5) 10^3/uL Monocytes # (Manual) 0.4 (0.0-1.0) 10^3/uL Nucleated RBCs Not Reportable Differential Comment MANUAL DIFFERENTIAL Platelet Estimate NORMAL (130-450,000) (NORMAL) Platelet Morphology NORMAL APPEARANCE (NORMAL) RBC Morph Micro Appear NORMAL APPEARANCE (NORMAL) Sodium (135-145) mmol/L Potassium (3.5-5.0) mmol/L Chloride (101-111) mmol/L Carbon Dioxide (21-32) mmol/L Anion Gap (6-13) BUN (6-20) mg/dL Creatinine (0.6-1.2) mg/dL Estimated GFR (MDRD) (>89) Glucose (70-100) mg/dL Lactic Acid (0.5-2.2) mmol/L Calcium (8.5-10.3) mg/dL Total Bilirubin (0.2-1.0) mg/dL AST (10-42) IU/L ALT (10-60) IU/L Alkaline Phosphatase (42-121) IU/L Total Protein (6.7-8.2) g/dL Albumin (3.2-5.5) g/dL Globulin (2.1-4.2) g/dL Albumin/Globulin Ratio (1.0-2.2) Amylase (28-100) U/L Lipase (22-51) U/L Assessment/Plan - Problem List (1) Atrial fibrillation with RVR Impression: seen in OR then transferred to ICU. Greater than 30 minutes spent in critical care. has chronic afib now with cholecystitis, no sepsis by lactic acid hypotensive with fast rate, diaphoretic transfer to ICU check troponins start dilt drip start levophed to keep BP MAP >60 get a central line (2) Gangrenous cholecystitis Impression: POD #0 for cholecystostomy michealsytex Day #2 do surgery when heart stable.
[2016-11-04] MEDS: diltiaZEM INJ 125 MG in DEXTROSE 5% 100 ML IV SCH (19:04)
--- NOTE | 2016-11-04 19:13 | OPERATIVE REPORT ---
Operative Report - General Admit Date: 11/03/16 Planned Procedure: Laparoscopic cholecystectomy possible IOC, possible CBDE, possible open cho Pre-Op Diagnosis: Acute cholecystitis Procedure Performed: Attempted laparoscopic cholecystectomy converted to cholecystostomy tube and drainage for gangrenous cholecystitis with persistent tachycardia (heart rate consistently in the 150's - atrial fibrillation with rapid ventricular response ) despite aggressive medical management Umbilical herniorrhaphy - Procedure Note Primary Surgeon: Frantz Johnson MD Anesthesia Provider: Olaf Walker Anesthesia Technique: General ET tube, Local (30 mL 1/2% marcaine) IV Fluids (mL): 1,900 Estimated Blood Loss (mL): 10 Drain/Tube Type: Derek drain (19 Fr in the subhepatic space just medial to the gallbladder), Other (8 Fr Flores with the balloon inflated with 5 mL of sterile saline in the gallbladder (cholecystostomy tube)) Complications: Persistent tachycardia (heart rate consistently in the 150's - atrial fibrillation with rapid ventricular response) despite aggressive medical management - Other Other Information/Narrative: OPERATIVE DESCRIPTION/REPORT: After verbal and written informed consent was obtained detailing the risks of infection, bleeding with all of its risks including transfusion, common bile duct injury, and the patient was brought to the operative suite and placed in the supine position on the operating room table. Monitoring devices were applied along with TEDs and pneumatic compressive stockings. Care was taken to avoid pressure points. Prophylactic antibiotics were given. An adequate level of general endotracheal anesthesia was established by Olaf Walker. The abdomen was then prepped with ChloraPrep and draped in a sterile fashion. A "time in" then confirmed that the paitient was identified with 3 identifiers (name, birthdate and medical record number), the history and physical was in the chart, the signed consent confirming the procedure was in the chart, the patient was in the correct position, the aforementioned prophylactic measures were in place or given, we had the correct personel and equipment to complete the procedure and that anesthesia, surgery and nursing were given an opportunity to express any concerns. The initial incision was at the umbilicus and dissection to the umbilical hernia sac was completed using blunt dissection. The hernia sac was dissected in a circumferential manner down to the fascial defect using blunt dissection and Bovie electrocautery and excised. In this manner I was able to access the abdominal cavity without difficulty or incident. In this location, a 12 mm blunt tipped, balloon tipped port was placed and the balloon was inflated to keep the port in position. The abdominal cavity was insufflated with carbon dioxide to steady-state pressure of 12 mmHg initially and the 10 mmHg due to concerns regarding his heart. Three additional 5 mm ports were placed in standard location for laparoscopic cholecystectomy (subxiphoid and 2 right subcostal) under direct vision of the 30 degree laparoscope and without incident. The patient was then placed in reverse Trendelenburg position and was rotated slightly to their left. It was at this point we were made aware that the patient was tachycardic and that initial medical interventions were not improving his tachycardia. There were dense adhesions of the omentum to the liver and gallbladder. These were taken down using traction and countertraction. With this maneuver the body of the gallbladder could be seen in the gallbladder was massively distended with a clearly necrotic wall. Photographs were taken of this. Due to the necrotic and thickened nature of the gallbladder wall it could not be grasped without draining the gallbladder. An Endo needle was placed into the gallbladder carefully and thick almost black bile was removed. This smelled horrible. This was sent for aerobic and anaerobic culture. The omentum was thickened around the gallbladder and every attempt was made to distance this from the gallbladder. I was then informed that the additional medical attempts at controlling the patient's tachycardia were not successful (esmolol, digoxin and verapamil). It was abundantly clear to me that dissection of this thick walled necrotic gallbladder was going to take significant time and that I could not have the patient remain tachycardic for that extended period of time. With the patient's safety in mind, I elected to place a cholecystostomy tube, drain the area and finish the operation as soon as possible in order to limit the patient's exposure to anesthesia, limit the patient exposure to abdominal insufflation and get the patient to the ICU where additional therapeutic measures could be tried. I made a small cholecystotomy in the fundus using Bovie electrocautery and a 8 Fr Flores was placed through the lateral most incision (removing the port) and the catheter was placed in the cholecystotomy and the balloon inflated with 5 mL of sterile saline. The balloon kept the catheter in place nicely. The catheter was then secured to the skin using a 3- 0 Nylon suture that was Rey-sandaled about the drain. Through the other subcostal port site I inserted a 19 Kinyarwanda Derek drain which was cut to fit and secured to the skin using a 3-0 nylon suture which was also Rey-sandaled about the drain. The drain was then directed using a grasper through the subxiphoid port to the subhepatic space right next to the cholecystostomy. I irrigated the right upper quadrant with a liter of warm sterile saline, and the area was aspirated as dry as I could. I briefly visually explored the abdomen. There was no other evidence of overt pathology. I injected the port sites at the peritoneal, fascial, and skin levels under direct vision with 0.5% Marcaine. All ports were removed. The remaining carbon dioxide was expelled from the abdomen. The fascia at the umbilicus was approximated using 3 [id number] 0 Vicryl sutures thus repairing the umbilical hernia The skin at the subxiphoid and the umbilical site was approximated using a subcuticular 4-0 Monocryl. The surgical count of instruments, needles and sponges was reported as correct twice. Mastisol, Steri-Strips and sterile surgical dressings were applied. The patient was then awakened from anesthesia, extubated, and was transported to the ICU. The complication encountered was his persistent tachycardia which necessitated a change in surgical plan. A "time out" confirmed the operation performed, the fluids given, the estimated blood loss and anesthesia, surgery and nursing were given an opportunity to express any concerns. I then spoke with the patient's regarding the operative findings as well as his clinical condition. I reviewed the photographs were taken during the operation with her. I explained the operation performed including placing the cholecystostomy tube as well as the drainage tube as well as fixing his umbilical hernia. I was very clear that we could not safely remove his gallbladder. We discussed what the expected postoperative course would be. I explained that his cardiac issues would take some precedence and she explained to me that he had had similar difficulties in the past. Ferficson disclaimer: This document was created in part using voice recognition technology. Because of the inherent limitations of the system ([employer] user manual states that the licensee understands that speech recognition is a statistical process and that recognition errors are inherent in the process), occasional same sounding word substitutions and grammatical errors do occur and persist despite proofreading. Please read this document for context.
[2016-11-04] MEDS: MORPHINE 2 MG/ML SYRINGE IVP PRN (20:03)
[2016-11-04] MEDS: SODIUM CHLORIDE FLUSH 0.9% 10 ML SYRINGE IVP PRN (20:36)
[2016-11-04] MEDS: HYDROmorphone 1 MG/ML CARPUJECT IVP PRN ×2 (20:36→23:11)
[2016-11-05] MEDS: diltiaZEM CD 120 MG CAPSULE PO SCH ×2 (00:05→08:56)
--- NOTE | 2016-11-05 01:08 | CONSULTATION NOTE ---
DATE OF CONSULTATION: 11/04/2016 00:00:00 REQUESTING PROVIDER: I am called on consultation by Holly Reid to evaluate this very pleasant 71-year-old male for ac pete cholecystitis. The patient was admitted to the hospital on 11/02/2016 with the diagnosis of chest pain and soon thereafter he had a rather complete workup that was done by Holly Reid but the pa tiejanine was determined not to have chest pain so much as had right upper quadrant pain. On admission, t he patient's white count was normal and on today's date it had climbed to 19 increasing the concern f or acute cholecystitis. The patient described the pain as very, very sharp, located in his just right lower chest. It felt like he was being stabbed. He did not describe any nausea or vomiting with it. There are certainly no hematemesis. The onset when it did occur was sudden. When it first occurred, h e was a little diaphoretic and felt a little bit dizzy, but since then, this is improved. He has [place] r had any previous episode of this. ALLERGIES: NONE. MEDICATIONS: 1. Flexeril 1 tab p.o. t.i.d. 2. Metoprolol succinate 1 tab p.o. daily. 3. Xarelto 20 mg p.o. daily. PAST MEDICAL AND SURGICAL HISTORY: 1. Atrial fibrillation. 2. Sleep apnea. 3. Prostate cancer. SOCIAL HISTORY: Tobacco, never. Alcohol, occasional. Recreational drug use, none. FAMILY HISTORY: Significant for coronary artery disease. REVIEW OF SYSTEMS: CONSTITUTIONAL: On admission he denied any fever, chills, or myalgias. HEENT: He denies any increase or decrease in his vision or hearing. He denies any difficulty swallowi ng or speaking, . CARDIOVASCULAR: He did report chest pain and pressure but he denied any pedal edema or palpitations. RESPIRATORY: He denied shortness of breath or productive cough. GASTROINTESTINAL: Please see above. GENITOURINARY: He denies dysuria, frequency. SKIN: He denied rash. NEUROLOGIC: He denied generalized or focal weakness or deficit. PSYCHIATRIC: He denied any insomnia, manic episodes, or schizophrenia. PHYSICAL EXAMINATION: GENERAL: The patient was examined in room 2[facility] at [facility] Med[facility]. He w as in minimal discomfort. He is alert and oriented to person, place and time. When I initially saw caroline beard he was having an echocardiogram done. The second time I saw him he lying in bed and we had a rather good discussion about his move to [facility] from [place]. He used to work for [employer] in the past. VITAL SIGNS: Please refer nurses' notes but please note he was afebrile, not tachycardic. Blood press ure was mildly hypertensive. Respiratory rate was normal and his O2 saturations were running anywhere between 94% and 97%. HEENT: Head, he was normocephalic, atraumatic. His sclerae are noninjected, nonicteric. His mucous me mbranes are pink and slightly dry. NECK: Supple without mass or bruits. HEART: His heart was irregularly irregular, but nontachycardic. LUNGS: Clear to auscultation bilaterally. ABDOMEN: Tender in the right upper quadrant, but minimally so, there were certainly no peritoneal fin dings. RECTAL: Deferred. GENITOURINARY: Deferred. EXTREMITIES: Show no gross deficits. GAIT: Not evaluated. LABORATORY: Abnormalities on today's labs include a white count of 19.1 with 16.4 neutrophils. Abnorm alities on his chemistry include a BUN of 21, GFR of 74, glucose 136, total bilirubin of 1.9 with an albumin globulin ratio 0.9, amylase of 23 and lipase of 18. The only abnormality on his urinalysis w as urine specific gravity greater than 1.030. Abdominal pelvic CT that was done today, read by Dr. Sa du returned a reading of cholelithiasis with subtle evidence of cholecystitis and a tiny nonobstruct ing left renal stone. This was done on the . ASSESSMENT: A 71-year-old male patient with signs and symptoms of acute cholecystitis. PLAN: Laparoscopic cholecystectomy, possible open cholecystectomy, possible intraoperative cholangiog chantelle, possible common bile duct exploration. The indications, procedure, alternatives and possible com plications including but not limited to infection, bleeding with all the risks including transfusion, common bile duct injury, and were fully explained to the patient. All questions were answered. Verbal and written consent was obtained. The patient in preparation for this will be maintained n.p. o. The patient will have preoperative antibiotics given for prophylaxis against surgical infection. I n addition, the patient will have TEDs and Venodynes placed for prophylaxis against deep venous throm bosis. The patient if there was any way we could make his stay here at [facility] more comfortable to please let us know. He stated that he would. JOB #: [id number] EXT JOB #:[id number]
[2016-11-05] MEDS: SODIUM CHLORIDE FLUSH 0.9% 10 ML SYRINGE IVP PRN (01:55)
[2016-11-05] MEDS: PIPERACILLIN/TAZOBACTAM 4.5 GM in SODIUM CHLORIDE 0.9% MINIBAG 100 ML IV SCH ×4 (01:55→19:35)
[2016-11-05] MEDS: LACTATED RINGERS 1,000 ML IV SCH ×4 (02:04→23:06)
[2016-11-05] MEDS: HYDROmorphone 1 MG/ML CARPUJECT IVP PRN ×5 (02:46→23:04)
[2016-11-05 03:03] LABS: BASOPHILS % (AUTO) 0.2 %; HCT - HEMATOCRIT 42.9 % (42.0-52.0); HGB - HEMOGLOBIN 14.4 g/dL (14.0-18.0); LYMPHOCYTES % (AUTO) 3.3 %; MEAN CORPUSCULAR HEMOGLOBIN 28.1 pg (27.0-31.0); MEAN CORPUSCULAR HGB CONC 33.5 g/dL (32.0-36.0); MEAN CORPUSCULAR VOLUME 83.9 fL (80.0-94.0); MEAN PLATELET VOLUME 8.7 fL (7.4-11.4); MONOCYTES % (AUTO) 5.8 %; NEUTROPHILS % (AUTO) 90.7 %; RED BLOOD COUNT 5.11 10^6/uL (4.70-6.10); RED CELL DISTRIBUTION WIDTH 13.8 % (12.0-15.0); UNCORRECTED WHITE BLOOD COUNT 16.4 x10^3/uL; WHITE BLOOD COUNT 16.4 x10^3/uL (4.8-10.8)
[2016-11-05 03:16] LABS: ALBUMIN/GLOBULIN RATIO 0.7 (1.0-2.2); BILIRUBIN,TOTAL 2.1 mg/dL (0.2-1.0); CALCIUM 8.1 mg/dL (8.5-10.3); CREATININE 1.1 mg/dL (0.6-1.2); POTASSIUM 4.1 mmol/L (3.5-5.0); TOTAL PROTEIN 6.9 g/dL (6.7-8.2)
[2016-11-05 04:56] LABS: BAND NEUTROPHILS % (MANUAL) 12 %; LYMPHOCYTES % (MANUAL) 4 %; NEUTROPHILS % (MANUAL) 79 %; NP AUTO DIFFERENTIAL? YES; NP MAN DIFFERENTIAL? NO; PLATELET ESTIMATE, MANUAL NORMAL (130-450,000) (NORMAL); TOTAL CELLS COUNTED 100
[2016-11-05] MEDS: PANTOPRAZOLE 40 MG VIAL IVP SCH (06:15)
[2016-11-05] MEDS: SODIUM CHLORIDE FLUSH 0.9% 10 ML SYRINGE IVP SCH ×3 (06:20→23:06)
[2016-11-05] MEDS ORDERED: AMIODARONE 150 MG/100 ML 100 ML IV ONE (10:56)
[2016-11-05] MEDS ORDERED: AMIODARONE 360 MG/200 ML 200 ML IV ONE (10:56)
[2016-11-05] MEDS ORDERED: AMIODARONE 360 MG/200 ML 200 ML IV SCH (11:00)
[2016-11-05] MEDS: METOPROLOL 5 MG/5 ML VIAL IVP PRN (13:01)
[2016-11-05] MEDS: AMIODARONE 360 MG/200 ML 200 ML IV SCH (17:41)
--- NOTE | 2016-11-05 19:33 | PROVIDER PROGRESS NOTE ---
Subjective - Prog Note Date Prog Note Date: 11/05/16 Prog Note Time: 19:23 - Subjective Subjective: Over the course of the day he has been in sinus, then back into atrial fibrillation, then back into sinus. His atrial fibrillation will go into the 130s. Sinus rhythm will be in the 50s. He has positives that come and go. I eventually started him on amiodarone. His and he relate the story of him being in atrial fibrillation many years ago and they cardioverted him many many times and were never successful in keeping him in sinus rhythm. But he does not call it atrial fibrillation. He called it a atrial arrhythmia. Has not seen a online editor in a while. He has been faithfully taking his Xarelto. He denies chest pain. He does not even feel the palpitations when they are happening. He did fill the diaphoresis from yesterday that was pretty severe in the postop setting. Has not felt any of that today. Current Medications - Current Medications Current Medications: Active Medications Diltiazem HCl (Cardizem Cd) 120 mg PO DAILY [facility] Last Admin: 11/05/16 08:56 Dose: 120 mg Hydromorphone HCl (Dilaudid Inj) 1 mg IVP Q2HR PRN PRN Reason: PAIN Last Admin: 11/05/16 17:58 Dose: 1 mg Piperacillin Sod/Tazobactam (Sod 4.5 gm/ Sodium Chloride) 100 mls @ 200 mls/hr IV Q6H MO[facility] Last Admin: 11/05/16 14:14 Dose: 200 mls/hr Lactated Ringer's (Lr) 1,000 mls @ 125 mls/hr IV .Q8H MOLLY Last Admin: 11/05/16 11:48 Dose: 125 mls/hr Diltiazem HCl 125 mg/ Dextrose 125 mls @ 15 mls/hr IV .Q8H20M MOLLY; 15 MG/HR PRN Reason: Protocol Last Titration: 11/05/16 01:04 Dose: 0 mg/hr Norepinephrine Bitartrate 8 mg (/ Dextrose) 250 mls @ 15 mls/hr IV .[id number] MOLLY ; 8 MCG/MIN PRN Reason: Protocol Last Admin: 11/05/16 15:44 Dose: Not Given Amiodarone HCl/Dextrose (Nexterone 360 Mg/200 Ml) 200 mls @ 16.667 mls/hr IV .Q12H MOLLY PRN Reason: 0.5 MG/MIN Last Admin: 11/05/16 17:41 Dose: 16.667 mls/hr Metoprolol Tartrate (Lopressor Inj) 5 mg IVP Q2H PRN PRN Reason: Hypertensive Emergency Last Admin: 11/05/16 13:01 Dose: 5 mg Morphine Sulfate (Morphine) 2 mg IVP Q2HR PRN PRN Reason: Chest Pain Last Admin: 11/04/16 20:03 Dose: 2 mg Ondansetron HCl (Zofran Inj) 4 mg IVP Q6HR PRN PRN Reason: Nausea / Vomiting Pantoprazole Sodium (Protonix) 40 mg IVP QDAC [facility] Last Admin: 11/05/16 06:15 Dose: 40 mg Sodium Chloride (Normal Saline Flush 0.9%) 10 ml IVP PRN PRN PRN Reason: NEEDED PER PROVIDER ORDERS Last Admin: 11/05/16 01:55 Dose: 10 ml Sodium Chloride (Normal Saline Flush 0.9%) 10 ml IVP Q8HR [facility] Last Admin: 11/05/16 15:42 Dose: 10 ml Cyclobenzaprine [Flexeril] 10 mg PO TID PRN 11/02/16 Metoprolol Succinate 25 mg PO DAILY PM 11/02/16 Rivaroxaban [Xarelto] 20 mg PO DAILY 11/02/16 Objective - Vital Signs/Intake & Output Reviewed Vital Signs: Yes Vital Signs: Vital Signs x48h Temp Pulse Resp BP BP Pulse Ox 11/05/16 19:17 36.7 C 11/05/16 18:00 76 16 134/87 H 94 11/05/16 17:00 77 20 130/70 94 11/05/16 16:00 78 16 127/68 93 11/05/16 15:00 36.8 C 72 18 128/70 93 11/05/16 14:00 73 22 127/77 95 11/05/16 13:31 138/83 H 11/05/16 13:01 138/83 H 11/05/16 13:00 136 H 14 138/83 H 93 11/05/16 12:00 118 H 14 128/96 H 90 L Intake & Output: Intake & Output 09/11/03/16 11/04/16 11/05/16 23:59 23:59 23:59 23:59 Intake Total 634 2622 3979 Output Total 900 Balance 620 1857 3079 - Objective General Appearance: positive: Alert - Lab Results Fish Bones: 11/06/16 06:00 11/05/16 02:55 Other Labs: Lab Results x24hrs 11/05/16 11/05/16 11/05/16 Range/Units 02:55 02:55 02:55 WBC 16.4 H (4.8-10.8) x10^3/uL RBC 5.11 (4.70-6.10) 10^6/uL Hgb 14.4 (14.0-18.0) g/dL Hct 42.9 (42.0-52.0) % MCV 83.9 (80.0-94.0) fL MCH 28.1 (27.0-31.0) pg MCHC 33.5 (32.0-36.0) g/dL RDW 13.8 (12.0-15.0) % Plt Count 167 (130-450) 10^3/uL MPV 8.7 (7.4-11.4) fL Neut # Not Reportable Lymph # Not Reportable [place] # Not Reportable Eos # Not Reportable Baso # Not Reportable Absolute Nucleated RBC Not Reportable Total Counted 100 Band Neuts % (Manual) 12 H (0 - 10) % Neutrophils # (Manual) 14.9 H (1.5-6.6) 10^3/uL Lymphocytes # (Manual) 0.7 L (1.5-3.5) 10^3/uL Monocytes # (Manual) 0.8 (0.0-1.0) 10^3/uL Nucleated RBCs Not Reportable Differential Comment MANUAL DIFFERENTIAL Platelet Estimate NORMAL (130-450,000) (NORMAL) RBC Morph Micro Appear NORMAL APPEARANCE (NORMAL) Sodium 135 (135-145) mmol/L Potassium 4.1 (3.5-5.0) mmol/L Chloride 102 (101-111) mmol/L Carbon Dioxide 23 (21-32) mmol/L Anion Gap 10.0 (6-13) BUN 23 H (6-20) mg/dL Creatinine 1.1 (0.6-1.2) mg/dL Estimated GFR (MDRD) 66 L (>89) Glucose 163 H (70-100) mg/dL Calcium 8.1 L (8.5-10.3) mg/dL Total Bilirubin 2.1 H (0.2-1.0) mg/dL AST 42 (10-42) IU/L ALT 43 (10-60) IU/L Alkaline Phosphatase 91 (42-121) IU/L Troponin I < 0.04 (<0.49) ng/mL Total Protein 6.9 (6.7-8.2) g/dL Albumin 2.9 L (3.2-5.5) g/dL Globulin 4.0 (2.1-4.2) g/dL Albumin/Globulin Ratio 0.7 L (1.0-2.2) 11/04/16 Range/Units 19:18 WBC (4.8-10.8) x10^3/uL RBC (4.70-6.10) 10^6/uL Hgb (14.0-18.0) g/dL Hct (42.0-52.0) % MCV (80.0-94.0) fL MCH (27.0-31.0) pg MCHC (32.0-36.0) g/dL RDW (12.0-15.0) % Plt Count (130-450) 10^3/uL MPV (7.4-11.4) fL Neut # Lymph # [place] # Eos # Baso # Absolute Nucleated RBC Total Counted Band Neuts % (Manual) (0 - 10) % Neutrophils # (Manual) (1.5-6.6) 10^3/uL Lymphocytes # (Manual) (1.5-3.5) 10^3/uL Monocytes # (Manual) (0.0-1.0) 10^3/uL Nucleated RBCs Differential Comment Platelet Estimate (NORMAL) RBC Morph Micro Appear (NORMAL) Sodium (135-145) mmol/L Potassium (3.5-5.0) mmol/L Chloride (101-111) mmol/L Carbon Dioxide (21-32) mmol/L Anion Gap (6-13) BUN (6-20) mg/dL Creatinine (0.6-1.2) mg/dL Estimated GFR (MDRD) (>89) Glucose (70-100) mg/dL Calcium (8.5-10.3) mg/dL Total Bilirubin (0.2-1.0) mg/dL AST (10-42) IU/L ALT (10-60) IU/L Alkaline Phosphatase (42-121) IU/L Troponin I < 0.04 (<0.49) ng/mL Total Protein (6.7-8.2) g/dL Albumin (3.2-5.5) g/dL Globulin (2.1-4.2) g/dL Albumin/Globulin Ratio (1.0-2.2) Assessment/Plan - Problem List (1) Atrial fibrillation with RVR Impression: really needs an EPS online editor. puzzling hx. hope the amoidarone helps. (2) Gangrenous cholecystitis Impression: POD #1. zosyn Day #2 s/p cholecystostomy
[2016-11-05] MEDS: diltiaZEM INJ 125 MG in DEXTROSE 5% 100 ML IV SCH ×2 (20:41→20:42)
--- NOTE | 2016-11-05 22:11 | PROVIDER PROGRESS NOTE ---
Subjective - General Admit Date: 11/03/16 Procedure Date: 11/04/16 Post Op Days: 1 Procedure Performed: Laparoscopic cholecystostomy tube placement and umbilical herniorrhaphy - Review of Systems Wound/Incisions: positive: Drainage Drain Type: 19 Fr Derek in subhepatic space and 8 Fr Flores in the gallbladder Drain Output Description: Slight bilious in cholecystostomy tube and serosanguinous in Derek Approximate mls Output: 10 mL cholecystostomy and 90 mL Derek General: positive: No symptoms HEENT: positive: No symptoms Pulmonary: positive: No symptoms Cardiovascular: positive: No symptoms Genitourinary: positive: No symptoms Musculoskeletal: positive: No symptoms Skin: positive: No symptoms Psychiatric: positive: No symptoms Objective - Patient Data Reviewed Vital Signs: Yes Vital Signs: Vital Signs x48h Temp Pulse Resp BP BP Pulse Ox 11/05/16 21:00 80 18 131/91 H 95 11/05/16 19:54 20 93 11/05/16 19:17 36.7 C 11/05/16 19:14 91 27 H 149/72 H 91 L 11/05/16 18:00 76 16 134/87 H 94 11/05/16 17:00 77 20 130/70 94 11/05/16 16:00 78 16 127/68 93 11/05/16 15:00 36.8 C 72 18 128/70 93 Intake & Output: Intake and Output Totals x24h 11/03/16 11/04/16 11/05/16 23:59 23:59 23:59 Intake Total 620 1856 4164 Output Total 920 Balance 620 1856 3244 - Lab Results Lab Results: 11/05/16 02:55 11/05/16 02:55 Other Lab Results: Lab Results x24hrs 11/05/16 11/05/16 11/05/16 Range/Units 02:55 02:55 02:55 WBC 16.4 H (4.8-10.8) x10^3/uL RBC 5.11 (4.70-6.10) 10^6/uL Hgb 14.4 (14.0-18.0) g/dL Hct 42.9 (42.0-52.0) % MCV 83.9 (80.0-94.0) fL MCH 28.1 (27.0-31.0) pg MCHC 33.5 (32.0-36.0) g/dL RDW 13.8 (12.0-15.0) % Plt Count 167 (130-450) 10^3/uL MPV 8.7 (7.4-11.4) fL Neut # Not Reportable Lymph # Not Reportable [place] # Not Reportable Eos # Not Reportable Baso # Not Reportable Absolute Nucleated RBC Not Reportable Total Counted 100 Band Neuts % (Manual) 12 H (0 - 10) % Neutrophils # (Manual) 14.9 H (1.5-6.6) 10^3/uL Lymphocytes # (Manual) 0.7 L (1.5-3.5) 10^3/uL Monocytes # (Manual) 0.8 (0.0-1.0) 10^3/uL Nucleated RBCs Not Reportable Differential Comment MANUAL DIFFERENTIAL Platelet Estimate NORMAL (130-450,000) (NORMAL) RBC Morph Micro Appear NORMAL APPEARANCE (NORMAL) Sodium 135 (135-145) mmol/L Potassium 4.1 (3.5-5.0) mmol/L Chloride 102 (101-111) mmol/L Carbon Dioxide 23 (21-32) mmol/L Anion Gap 10.0 (6-13) BUN 23 H (6-20) mg/dL Creatinine 1.1 (0.6-1.2) mg/dL Estimated GFR (MDRD) 66 L (>89) Glucose 163 H (70-100) mg/dL Calcium 8.1 L (8.5-10.3) mg/dL Total Bilirubin 2.1 H (0.2-1.0) mg/dL AST 42 (10-42) IU/L ALT 43 (10-60) IU/L Alkaline Phosphatase 91 (42-121) IU/L Troponin I < 0.04 (<0.49) ng/mL Total Protein 6.9 (6.7-8.2) g/dL Albumin 2.9 L (3.2-5.5) g/dL Globulin 4.0 (2.1-4.2) g/dL Albumin/Globulin Ratio 0.7 L (1.0-2.2) - Current Medications Current Medications: Current Medications Generic Name Dose Route Start Last Admin Trade Name Freq PRN Reason Stop Dose Admin Diltiazem HCl 120 mg 11/04/16 23:40 11/05/16 08:56 Cardizem Cd PO 120 mg DAILY MOLLY Administration Hydromorphone HCl 1 mg 11/04/16 08:07 11/05/16 17:58 Dilaudid Inj IVP 1 mg Q2HR PRN Administration PAIN Piperacillin Sod/Tazobactam 100 mls @ 200 mls/hr 11/04/16 08:00 11/05/16 19:35 Sod 4.5 gm/ Sodium Chloride IV 200 mls/hr Q6H [facility] Administration Lactated Ringer's 1,000 mls @ 125 mls/hr 11/04/16 09:00 11/05/16 11:48 Lr IV 125 mls/hr .Q8H [facility] Administration Diltiazem HCl 125 mg/ Dextrose 125 mls @ 15 mls/hr 11/04/16 19:00 11/05/16 20: 42 IV Not Given .Q8H20M [facility] Protocol 15 MG/HR Norepinephrine Bitartrate 8 mg 250 mls @ 15 mls/hr 11/04/16 19:00 11/05/16 15: 44 / Dextrose IV Not Given .[id number] MOLLY Protocol 8 MCG/MIN Amiodarone HCl/Dextrose 200 mls @ 16.667 mls/hr 11/05/16 16:30 11/05/16 17:41 Nexterone 360 Mg/200 Ml IV 16.667 mls/hr .Q12H MOLLY Administration 0.5 MG/MIN Metoprolol Tartrate 5 mg 11/05/16 10:55 11/05/16 13:01 Lopressor Inj IVP 5 mg Q2H PRN Administration Hypertensive Emergency Morphine Sulfate 2 mg 11/02/16 22:46 11/04/16 20:03 Morphine IVP 2 mg Q2HR PRN Administration Chest Pain Pantoprazole Sodium 40 mg 11/02/16 23:00 11/05/16 06:15 Protonix IVP 40 mg QDAC MOLLY Administration Sodium Chloride 10 ml 11/02/16 22:50 11/05/16 01:55 Normal Saline Flush 0.9% IVP 10 ml PRN PRN Administration NEEDED PER PROVIDER ORDERS Sodium Chloride 10 ml 11/03/16 06:00 11/05/16 15:42 Normal Saline Flush 0.9% IVP 10 ml Q8HR MOLLY Administration - Physical Exam Wound/Incisions: positive: Drainage General Appearance: positive: No acute distress Eyes Bilateral: positive: No lid inflammation, Conjunctivae nml, No scleral icterus Neck: positive: Trachea midline Respiratory: positive: Chest non-tender, No respiratory distress, Breath sounds nml Abdomen: positive: Non-tender, Abnml bowel sounds (Decreased.) Skin: positive: Color nml Extremities: positive: Non-tender, Full ROM, Nml appearance Neurologic/Psychiatric: positive: Oriented x3 Impression/Plan - Problem List Problem List: Day 1 status post laparoscopic cholecystostomy tube. The patient was vacillating between normal sinus rhythm and atrial fibrillation with rapid ventricular response earlier today. He apparently converted and stayed converted sometime in the afternoon. The patient's cardiac issues are being handled by the hospitalist service. With regards to his cholecystostomy tube that was placed due to this cardiac issues during the operation yesterday he will remain on drainage until his white blood cell count normalizes. He should remain on antibiotics this entire time. Once his white blood cell count normalizes we should be able to pull the cholecystostomy tube, leaving the Derek tube and for a day or 2 more to ensure that there is no bile leak that may be all the patient requires. Interval removal of his gallbladder may not be necessary.
[2016-11-06] MEDS: HYDROmorphone 1 MG/ML CARPUJECT IVP PRN ×2 (02:19→20:28)
[2016-11-06] MEDS: PIPERACILLIN/TAZOBACTAM 4.5 GM in SODIUM CHLORIDE 0.9% MINIBAG 100 ML IV SCH ×4 (02:25→20:27)
[2016-11-06] MEDS: SODIUM CHLORIDE FLUSH 0.9% 10 ML SYRINGE IVP PRN ×2 (03:24→06:27)
[2016-11-06] MEDS: diltiaZEM INJ 125 MG in DEXTROSE 5% 100 ML IV SCH (04:35)
[2016-11-06] MEDS: PANTOPRAZOLE 40 MG VIAL IVP SCH (06:27)
[2016-11-06] MEDS: SODIUM CHLORIDE FLUSH 0.9% 10 ML SYRINGE IVP SCH ×3 (06:27→20:28)
[2016-11-06 06:28] LABS: BASOPHILS # (AUTO) 0.1 10^3/uL (0.0-0.1); BASOPHILS % (AUTO) 0.4 %; EOSINOPHILS # (AUTO) 0.2 10^3/uL (0.0-0.7); EOSINOPHILS % (AUTO) 1.3 %; HGB - HEMOGLOBIN 12.4 g/dL (14.0-18.0); LYMPHOCYTES # (AUTO) 0.9 10^3/uL (1.5-3.5); LYMPHOCYTES % (AUTO) 7.1 %; MEAN CORPUSCULAR HEMOGLOBIN 27.5 pg (27.0-31.0); MEAN CORPUSCULAR HGB CONC 32.6 g/dL (32.0-36.0); MEAN CORPUSCULAR VOLUME 84.2 fL (80.0-94.0); MONOCYTES # (AUTO) 1.2 10^3/uL (0.0-1.0); MONOCYTES % (AUTO) 8.8 %; NEUTROPHILS # (AUTO) 10.8 10^3/uL (1.5-6.6); NEUTROPHILS % (AUTO) 82.4 %; RED BLOOD COUNT 4.51 10^6/uL (4.70-6.10); RED CELL DISTRIBUTION WIDTH 13.8 % (12.0-15.0); UNCORRECTED WHITE BLOOD COUNT 13.1 x10^3/uL; WHITE BLOOD COUNT 13.1 x10^3/uL (4.8-10.8)
[2016-11-06 06:38] LABS: MAGNESIUM 1.9 mg/dL (1.7-2.8); PHOSPHORUS 1.8 mg/dL (2.5-4.6)
[2016-11-06] MEDS ORDERED: AMIODARONE 200 MG TABLET PO ONE (07:39)
--- NOTE | 2016-11-06 07:45 | PROVIDER PROGRESS NOTE ---
Subjective - Prog Note Date Prog Note Date: 11/06/16 Prog Note Time: 07:41 - Subjective Subjective: Keeps on going into afib. was sinus all night long with dag sprayer then back to afib 07:08. has been loaded with IV amiodarone and to get first dose of po now. When goes into afib rate is not controlled and goes to 130. denies cp, sob, not aware From an infectious perspective he does not have any fever [place] diaphoresis Current Medications - Current Medications Current Medications: Active Medications Amiodarone HCl (Pacerone) 800 mg PO DAILY [facility] Diltiazem HCl (Cardizem Cd) 120 mg PO DAILY [facility] Last Admin: 11/05/16 08:56 Dose: 120 mg Hydromorphone HCl (Dilaudid Inj) 1 mg IVP Q2HR PRN PRN Reason: PAIN Last Admin: 11/06/16 02:19 Dose: 1 mg Piperacillin Sod/Tazobactam (Sod 4.5 gm/ Sodium Chloride) 100 mls @ 200 mls/hr IV Q6H [facility] Last Admin: 11/06/16 02:25 Dose: 200 mls/hr Diltiazem HCl 125 mg/ Dextrose 125 mls @ 15 mls/hr IV .Q8H20M [facility]; 15 MG/HR PRN Reason: Protocol Last Admin: 11/06/16 04:35 Dose: Not Given Norepinephrine Bitartrate 8 mg (/ Dextrose) 250 mls @ 15 mls/hr IV .[id number] MOLLY ; 8 MCG/MIN PRN Reason: Protocol Last Admin: 11/06/16 04:35 Dose: Not Given Metoprolol Tartrate (Lopressor Inj) 5 mg IVP Q2H PRN PRN Reason: Hypertensive Emergency Last Admin: 11/05/16 13:01 Dose: 5 mg Morphine Sulfate (Morphine) 2 mg IVP Q2HR PRN PRN Reason: Chest Pain Last Admin: 11/04/16 20:03 Dose: 2 mg Ondansetron HCl (Zofran Inj) 4 mg IVP Q6HR PRN PRN Reason: Nausea / Vomiting Pantoprazole Sodium (Protonix) 40 mg IVP QDAC [facility] Last Admin: 11/06/16 06:27 Dose: 40 mg Sodium Chloride (Normal Saline Flush 0.9%) 10 ml IVP PRN PRN PRN Reason: NEEDED PER PROVIDER ORDERS Last Admin: 11/06/16 06:27 Dose: 10 ml Sodium Chloride (Normal Saline Flush 0.9%) 10 ml IVP Q8HR [facility] Last Admin: 11/06/16 06:27 Dose: 10 ml Cyclobenzaprine [Flexeril] 10 mg PO TID PRN 11/02/16 Metoprolol Succinate 25 mg PO DAILY PM 11/02/16 Rivaroxaban [Xarelto] 20 mg PO DAILY 11/02/16 Objective - Vital Signs/Intake & Output Reviewed Vital Signs: Yes Vital Signs: Vital Signs x48h Temp Pulse Resp BP Pulse Ox 11/06/16 07:11 36.6 C 138 H 26 H 141/95 H 94 11/06/16 06:00 83 16 145/79 H 96 11/06/16 05:00 77 14 141/85 H 94 11/06/16 04:00 89 20 140/86 H 93 11/06/16 03:32 36.8 C 11/06/16 03:00 96 18 153/74 H 95 11/06/16 02:00 76 14 142/70 H 95 11/06/16 01:00 77 13 135/76 H 93 11/06/16 00:00 77 15 140/74 H 95 11/05/16 23:52 18 93 Intake & Output: Intake & Output 11/03/16 11/04/16 11/05/16 11/06/16 23:59 23:59 23:59 23:59 Intake Total 620 1856 4474 465 Output Total 920 245 Balance 620 1856 5664 220 - Objective General Appearance: positive: No acute distress, Alert, Other (Middle-aged white male, moderately overweight with a large abdominal pannus who is comfortable, smiling) Eyes Bilateral: positive: PERRL, EOMI Neck: negative: Lymphadenopathy (R), Lymphadenopathy (L), Stiff neck, Carotid bruit Respiratory: positive: Chest non-tender. negative: Wheezes, Rales, Rhonchi Cardiovascular: positive: Irregularly irregular (At times), Bradycardia (Sinus, drops to the 50s then back in A. fib). negative: Gallop/S4, Friction rub Abdomen: positive: No organomegaly, Nml bowel sounds, Other (Cholecystostomy tube draining into bag brown bloody fluid small amount). negative: Guarding, Rebound Skin: positive: Warm, Dry. negative: Diaphoresis (Was profoundly diaphoretic after the OR yesterday, skin is now warm and dry) Extremities: positive: Non-tender, Full ROM, No pedal edema Neurologic/Psychiatric: positive: Oriented x3, CN's nml (2-12), Motor nml - Lab Results Fish Bones: 11/06/16 06:00 11/06/16 06:00 Other Labs: Lab Results x24hrs 11/06/16 11/06/16 11/06/16 Range/Units 06:00 06:00 06:00 WBC 13.1 H (4.8-10.8) x10^3/uL RBC 4.51 L (4.70-6.10) 10^6/uL Hgb 12.4 L (14.0-18.0) g/dL Hct 38.0 L (42.0-52.0) % MCV 84.2 (80.0-94.0) fL MCH 27.5 (27.0-31.0) pg MCHC 32.6 (32.0-36.0) g/dL RDW 13.8 (12.0-15.0) % Plt Count 175 (130-450) 10^3/uL MPV 9.0 (7.4-11.4) fL Neut # 10.8 H (1.5-6.6) 10^3/uL Lymph # 0.9 L (1.5-3.5) 10^3/uL [place] # 1.2 H (0.0-1.0) 10^3/uL Eos # 0.2 (0.0-0.7) 10^3/uL Baso # 0.1 (0.0-0.1) 10^3/uL Absolute Nucleated RBC 0.01 x10^3/uL Nucleated RBCs 0.0 /100WBC Phosphorus 1.8 L (2.5-4.6) mg/dL Magnesium 1.9 (1.7-2.8) mg/dL Troponin I < 0.04 (<0.49) ng/mL Assessment/Plan - Problem List (1) Atrial fibrillation with RVR Impression: I called his studio designer, Aleksandra Medel. Her phone number is [phone]. She is not in the office today but I spoke to the studio designer on-call and reviewed the case with him. The only good thing out of this is that the chads score is 2 or lower. Anticoagulation not absolutely recommended. He does not recommend a change in my management. Change the amiodarone to 400 mg p.o. twice daily and watch for second-degree or third-degree heart block. The other problem is that the patient will go into sinus bradycardia with so much blockade going on. So we will use metoprolol and amiodarone and no other meds at this time. Other than holding the course, he does not recommend any other changes. Does not feel that the patient needs a higher level of care. Plan: Transition to amiodarone p.o. Use IV beta-siddhartha as needed Monitor closely on telemetry for sinus pause or sinus block Wait it out (2) Gangrenous cholecystitis Impression: Status post cholecystostomy Postop day #1 This was done for gangrenous cholecystitis. Continue Zosyn, day #2 (3) Hypophosphatemia Impression: initiate electrolyte replacement protocol
[2016-11-06] MEDS: AMIODARONE 360 MG/200 ML 200 ML IV SCH (07:46)
[2016-11-06] MEDS: AMIODARONE 200 MG TABLET PO SCH (07:55)
[2016-11-06 08:05] LABS: ALBUMIN/GLOBULIN RATIO 0.6 (1.0-2.2); CALCIUM 8.1 mg/dL (8.5-10.3); POTASSIUM 3.4 mmol/L (3.5-5.0); TOTAL PROTEIN 6.6 g/dL (6.7-8.2)
[2016-11-06] MEDS: NEUTRA-PHOS 250 MG TABLET PO SCH ×2 (08:49→11:19)
[2016-11-06] MEDS: METOPROLOL 5 MG/5 ML VIAL IVP PRN ×2 (08:49→20:28)
[2016-11-06] MEDS: POTASSIUM CHLORIDE 20 MEQ/15 ML UDC PO SCH (08:59)
[2016-11-06] MEDS ORDERED: AMIODARONE 200 MG TABLET PO SCH (09:00)
[2016-11-06] MEDS: diltiaZEM CD 120 MG CAPSULE PO SCH (12:32)
--- NOTE | 2016-11-06 18:02 | PROVIDER PROGRESS NOTE ---
Subjective - General Admit Date: 11/03/16 Procedure Date: 11/04/16 Post Op Days: 2 Procedure Performed: Laparoscopic cholecystostomy tube placement and umbilical herniorrhaphy - Review of Systems Wound/Incisions: positive: Drainage Drain Type: 19 Fr Derek in subhepatic space and 8 Fr Flores in the gallbladder Drain Output Description: Bilious in cholecystostomy tube and serosanguinous in Derek Approximate mls Output: Nothing recorded for cholecystostomy and 20 mL Derek General: positive: Fatigue (Feels very tired.), Chills (Slight chills.) HEENT: positive: No symptoms Pulmonary: positive: No symptoms Cardiovascular: positive: No symptoms. negative: Chest pain, Lightheadedness Gastrointestinal: positive: No symptoms Genitourinary: positive: No symptoms Musculoskeletal: positive: No symptoms Skin: positive: No symptoms Psychiatric: positive: No symptoms Objective - Patient Data Reviewed Vital Signs: Yes Vital Signs: Vital Signs x48h Temp Pulse Resp BP Pulse Ox 11/06/16 17:15 151 H 22 123/75 93 11/06/16 16:19 36.9 C 143 H 19 133/107 H 96 11/06/16 14:41 151 H 21 140/105 H 92 11/06/16 14:00 146 H 24 124/108 H 92 11/06/16 13:16 136 H 20 119/70 95 11/06/16 13:00 126 H 20 119/70 95 11/06/16 12:00 98.6 C H 145 H 18 125/88 H 94 11/06/16 11:00 144 H 20 117/68 96 Intake & Output: Intake and Output Totals x24h 11/04/16 11/05/16 11/06/16 23:59 23:59 23:59 Intake Total 1856 4474 1230 Output Total 920 1045 Balance 1856 3554 185 - Lab Results Lab Results: 11/06/16 06:00 11/06/16 06:00 Other Lab Results: Lab Results x24hrs 11/06/16 11/06/16 11/06/16 Range/Units 06:00 06:00 06:00 WBC 13.1 H (4.8-10.8) x10^3/uL RBC 4.51 L (4.70-6.10) 10^6/uL Hgb 12.4 L (14.0-18.0) g/dL Hct 38.0 L (42.0-52.0) % MCV 84.2 (80.0-94.0) fL MCH 27.5 (27.0-31.0) pg MCHC 32.6 (32.0-36.0) g/dL RDW 13.8 (12.0-15.0) % Plt Count 175 (130-450) 10^3/uL MPV 9.0 (7.4-11.4) fL Neut # 10.8 H (1.5-6.6) 10^3/uL Lymph # 0.9 L (1.5-3.5) 10^3/uL Bath # 1.2 H (0.0-1.0) 10^3/uL Eos # 0.2 (0.0-0.7) 10^3/uL Baso # 0.1 (0.0-0.1) 10^3/uL Absolute Nucleated RBC 0.01 x10^3/uL Nucleated RBCs 0.0 /100WBC Sodium 137 (135-145) mmol/L Potassium 3.4 L (3.5-5.0) mmol/L Chloride 101 (101-111) mmol/L Carbon Dioxide 26 (21-32) mmol/L Anion Gap 10.0 (6-13) BUN 22 H (6-20) mg/dL Creatinine 1.0 (0.6-1.2) mg/dL Estimated GFR (MDRD) 74 L (>89) Glucose 133 H (70-100) mg/dL Calcium 8.1 L (8.5-10.3) mg/dL Phosphorus 1.8 L (2.5-4.6) mg/dL Magnesium 1.9 (1.7-2.8) mg/dL Total Bilirubin 1.0 (0.2-1.0) mg/dL AST 23 (10-42) IU/L ALT 24 (10-60) IU/L Alkaline Phosphatase 93 (42-121) IU/L Troponin I (<0.49) ng/mL Total Protein 6.6 L (6.7-8.2) g/dL Albumin 2.5 L (3.2-5.5) g/dL Globulin 4.1 (2.1-4.2) g/dL Albumin/Globulin Ratio 0.6 L (1.0-2.2) 11/06/16 Range/Units 06:00 WBC (4.8-10.8) x10^3/uL RBC (4.70-6.10) 10^6/uL Hgb (14.0-18.0) g/dL Hct (42.0-52.0) % MCV (80.0-94.0) fL MCH (27.0-31.0) pg MCHC (32.0-36.0) g/dL RDW (12.0-15.0) % Plt Count (130-450) 10^3/uL MPV (7.4-11.4) fL Neut # (1.5-6.6) 10^3/uL Lymph # (1.5-3.5) 10^3/uL Bath # (0.0-1.0) 10^3/uL Eos # (0.0-0.7) 10^3/uL Baso # (0.0-0.1) 10^3/uL Absolute Nucleated RBC x10^3/uL Nucleated RBCs /100WBC Sodium (135-145) mmol/L Potassium (3.5-5.0) mmol/L Chloride (101-111) mmol/L Carbon Dioxide (21-32) mmol/L Anion Gap (6-13) BUN (6-20) mg/dL Creatinine (0.6-1.2) mg/dL Estimated GFR (MDRD) (>89) Glucose (70-100) mg/dL Calcium (8.5-10.3) mg/dL Phosphorus (2.5-4.6) mg/dL Magnesium (1.7-2.8) mg/dL Total Bilirubin (0.2-1.0) mg/dL AST (10-42) IU/L ALT (10-60) IU/L Alkaline Phosphatase (42-121) IU/L Troponin I < 0.04 (<0.49) ng/mL Total Protein (6.7-8.2) g/dL Albumin (3.2-5.5) g/dL Globulin (2.1-4.2) g/dL Albumin/Globulin Ratio (1.0-2.2) - Current Medications Current Medications: Current Medications Generic Name Dose Route Start Last Admin Trade Name Freq PRN Reason Stop Dose Admin Amiodarone HCl 800 mg 11/06/16 08:15 11/06/16 07:55 Pacerone PO Not Given DAILY MOLLY Diltiazem HCl 120 mg 11/04/16 23:40 11/06/16 12:32 Cardizem Cd PO 120 mg DAILY MOLLY Administration Hydromorphone HCl 1 mg 11/04/16 08:07 11/06/16 02:19 Dilaudid Inj IVP 1 mg Q2HR PRN Administration PAIN Piperacillin Sod/Tazobactam 100 mls @ 200 mls/hr 11/04/16 08:00 11/06/16 17:34 Sod 4.5 gm/ Sodium Chloride IV 200 mls/hr Q6H MOLLY Administration Metoprolol Tartrate 5 mg 11/05/16 10:55 11/06/16 08:49 Lopressor Inj IVP 5 mg Q2H PRN Administration Hypertensive Emergency Morphine Sulfate 2 mg 11/02/16 22:46 11/04/16 20:03 Morphine IVP 2 mg Q2HR PRN Administration Chest Pain Pantoprazole Sodium 40 mg 11/02/16 23:00 11/06/16 06:27 Protonix IVP 40 mg QDAC MOLLY Administration Potassium Chloride 20 meq 11/06/16 09:00 11/06/16 08:59 PO 20 meq DAILYWM MOLLY Administration Sodium Chloride 10 ml 11/02/16 22:50 11/06/16 06:27 Normal Saline Flush 0.9% IVP 10 ml PRN PRN Administration NEEDED PER PROVIDER ORDERS Sodium Chloride 10 ml 11/03/16 06:00 11/06/16 06:27 Normal Saline Flush 0.9% IVP 10 ml Q8HR MOLLY Administration - Physical Exam Wound/Incisions: positive: Drainage General Appearance: positive: Mild distress, Anxious Eyes Bilateral: positive: No lid inflammation, Conjunctivae nml, No scleral icterus Neck: positive: Trachea midline Respiratory: positive: Chest non-tender, No respiratory distress, Breath sounds nml Cardiovascular: positive: Tachycardia (Irregular.) Abdomen: positive: Abnml bowel sounds (Slightly decreased.) Skin: positive: Pallor Extremities: positive: Nml appearance Neurologic/Psychiatric: positive: Oriented x3
[2016-11-06] MEDS: ONDANSETRON 4 MG/2 ML VIAL IVP PRN (20:27)
[2016-11-07] MEDS: PIPERACILLIN/TAZOBACTAM 4.5 GM in SODIUM CHLORIDE 0.9% MINIBAG 100 ML IV SCH ×4 (02:15→20:42)
[2016-11-07] MEDS: HYDROmorphone 1 MG/ML CARPUJECT IVP PRN ×4 (02:16→22:43)
[2016-11-07] MEDS: SODIUM CHLORIDE FLUSH 0.9% 10 ML SYRINGE IVP SCH ×3 (06:01→22:07)
[2016-11-07] MEDS: METOPROLOL 5 MG/5 ML VIAL IVP PRN ×2 (06:06→10:09)
[2016-11-07] MEDS: PANTOPRAZOLE 40 MG VIAL IVP SCH (06:09)
[2016-11-07 06:29] LABS: BASOPHILS % (AUTO) 0.4 %; EOSINOPHILS # (AUTO) 0.3 10^3/uL (0.0-0.7); EOSINOPHILS % (AUTO) 2.4 %; HCT - HEMATOCRIT 38.2 % (42.0-52.0); HGB - HEMOGLOBIN 12.4 g/dL (14.0-18.0); LYMPHOCYTES # (AUTO) 1.2 10^3/uL (1.5-3.5); LYMPHOCYTES % (AUTO) 10.1 %; MEAN CORPUSCULAR HEMOGLOBIN 27.2 pg (27.0-31.0); MEAN CORPUSCULAR HGB CONC 32.5 g/dL (32.0-36.0); MEAN CORPUSCULAR VOLUME 83.7 fL (80.0-94.0); MEAN PLATELET VOLUME 8.3 fL (7.4-11.4); MONOCYTES # (AUTO) 1.3 10^3/uL (0.0-1.0); MONOCYTES % (AUTO) 10.8 %; NEUTROPHILS # (AUTO) 8.9 10^3/uL (1.5-6.6); NEUTROPHILS % (AUTO) 76.3 %; RED BLOOD COUNT 4.56 10^6/uL (4.70-6.10); RED CELL DISTRIBUTION WIDTH 13.6 % (12.0-15.0); UNCORRECTED WHITE BLOOD COUNT 11.6 x10^3/uL; WHITE BLOOD COUNT 11.6 x10^3/uL (4.8-10.8)
[2016-11-07 06:40] LABS: ALBUMIN/GLOBULIN RATIO 0.6 (1.0-2.2); BILIRUBIN,TOTAL 1.3 mg/dL (0.2-1.0); BUN - BLOOD UREA NITROGEN 21 mg/dL (6-20); CALCIUM 8.1 mg/dL (8.5-10.3); CARBON DIOXIDE - CO2 27 mmol/L (21-32); CHLORIDE 107 mmol/L (101-111); CREATININE 0.9 mg/dL (0.6-1.2); GFR - MDRD 84 (>89); GLUCOSE 113 mg/dL (70-100); MAGNESIUM 2.1 mg/dL (1.7-2.8); PHOSPHORUS 2.5 mg/dL (2.5-4.6); POTASSIUM 3.4 mmol/L (3.5-5.0); SODIUM 141 mmol/L (135-145); TOTAL PROTEIN 6.4 g/dL (6.7-8.2)
[2016-11-07] MEDS ORDERED: POTASSIUM CHLORIDE 20 MEQ TABLET PO SCH (06:45)
[2016-11-07 06:49] LABS: CALCIUM, IONIZED 1.08 mmol/L (1.15-1.33); VBG PH 7.456 (7.31-7.41)
[2016-11-07] MEDS: diltiaZEM CD 120 MG CAPSULE PO SCH (09:03)
[2016-11-07] MEDS: CALCIUM CITRATE 250 MG TABLET PO SCH ×4 (09:03→20:41)
[2016-11-07] MEDS: AMIODARONE 200 MG TABLET PO SCH ×3 (09:05→20:43)
--- NOTE | 2016-11-07 09:06 | PROVIDER PROGRESS NOTE ---
Subjective - Prog Note Date Prog Note Date: 11/07/16 Prog Note Time: 09:03 - Subjective Subjective: as he continues to bounce between sinus rhythm and atrial fibrillation. When he is in sinus he can actually drop as low as the 40s. When he is in atrial fibrillation he can bounce up into the 130s-150s and get diaphoretic but states too long. He has been loaded with IV amiodarone, transition to p.o. amiodarone. The gas line installer supervisor recommended that he be on amiodarone and metoprolol. I am stopping the diltiazem. Other than the incisional abdominal pain he is not complaining of any pain. No shortness of breath. Even when he is diaphoretic he minimizes complaints of discomfort. No leg pain. Current Medications - Current Medications Current Medications: Active Medications Amiodarone HCl (Pacerone) 800 mg PO DAILY [facility] Last Admin: 11/06/16 07:55 Dose: Not Given Calcium Citrate () 500 mg PO QID [facility] PRN Reason: Protocol Stop: 11/07/16 21:01 Diltiazem HCl (Cardizem Cd) 120 mg PO DAILY [facility] Last Admin: 11/06/16 12:32 Dose: 120 mg Hydromorphone HCl (Dilaudid Inj) 1 mg IVP Q2HR PRN PRN Reason: PAIN Last Admin: 11/07/16 06:05 Dose: 1 mg Piperacillin Sod/Tazobactam (Sod 4.5 gm/ Sodium Chloride) 100 mls @ 200 mls/hr IV Q6H [facility] Last Admin: 11/07/16 08:40 Dose: 200 mls/hr Metoprolol Tartrate (Lopressor Inj) 5 mg IVP Q2H PRN PRN Reason: Hypertensive Emergency Last Admin: 11/07/16 06:06 Dose: 5 mg Morphine Sulfate (Morphine) 2 mg IVP Q2HR PRN PRN Reason: Chest Pain Last Admin: 11/04/16 20:03 Dose: 2 mg Ondansetron HCl (Zofran Inj) 4 mg IVP Q6HR PRN PRN Reason: Nausea / Vomiting Last Admin: 11/06/16 20:27 Dose: 4 mg Pantoprazole Sodium (Protonix) 40 mg IVP QDAC [facility] Last Admin: 11/07/16 06:09 Dose: 40 mg Potassium Chloride () 20 meq PO DAILYWM MOLLY Last Admin: 11/06/16 08:59 Dose: 20 meq Potassium Chloride (K-Dur) 40 meq PO ONCE MOLLY PRN Reason: Protocol Stop: 11/07/16 10:00 Last Admin: 11/07/16 08:45 Dose: 40 meq Sodium Chloride (Normal Saline Flush 0.9%) 10 ml IVP PRN PRN PRN Reason: NEEDED PER PROVIDER ORDERS Last Admin: 11/06/16 06:27 Dose: 10 ml Sodium Chloride (Normal Saline Flush 0.9%) 10 ml IVP Q8HR MOLLY Last Admin: 11/07/16 06:01 Dose: 10 ml Cyclobenzaprine [Flexeril] 10 mg PO TID PRN 11/02/16 Metoprolol Succinate 25 mg PO DAILY PM 11/02/16 Rivaroxaban [Xarelto] 20 mg PO DAILY 11/02/16 Objective - Vital Signs/Intake & Output Reviewed Vital Signs: Yes Vital Signs: Vital Signs x48h Temp Pulse Resp BP Pulse Ox 11/07/16 08:38 36.2 C L 122 H 19 124/83 H 94 11/07/16 07:54 87 12 123/96 H 96 11/07/16 07:00 92 16 114/82 H 94 11/07/16 06:00 133 H 14 119/83 H 95 11/07/16 05:00 122 H 16 119/83 H 96 11/07/16 04:00 36.6 C 106 H 20 123/63 95 11/07/16 03:00 98 14 124/69 96 11/07/16 02:00 109 H 16 119/68 94 Intake & Output: Intake & Output 11/04/16 11/05/16 11/06/16 11/07/16 23:59 23:59 23:59 23:59 Intake Total 1856 4474 1950 350 Output Total 920 1315 175 Balance 1856 3554 635 175 - Objective General Appearance: positive: No acute distress, Alert, Other (Middle-aged white [place] male, moderately overweight in no acute distress) Eyes Bilateral: positive: PERRL, EOMI ENT: positive: Pharynx nml Neck: positive: No JVD. negative: Stiff neck, Carotid bruit Respiratory: positive: Chest non-tender. negative: Wheezes, Rales, Rhonchi Cardiovascular: positive: Regular rate & rhythm, Irregularly irregular, Tachycardia, Bradycardia. negative: Gallop/S4, Friction rub Skin: positive: Warm, Dry Extremities: positive: Full ROM, No pedal edema Neurologic/Psychiatric: positive: Oriented x3, CN's nml (2-12), Motor nml - Lab Results Fish Bones: 11/07/16 06:00 11/07/16 06:00 Other Labs: Lab Results x24hrs 11/07/16 11/07/16 11/07/16 Range/Units 06:00 06:00 06:00 WBC 11.6 H (4.8-10.8) x10^3/uL RBC 4.56 L (4.70-6.10) 10^6/uL Hgb 12.4 L (14.0-18.0) g/dL Hct 38.2 L (42.0-52.0) % MCV 83.7 (80.0-94.0) fL MCH 27.2 (27.0-31.0) pg MCHC 32.5 (32.0-36.0) g/dL RDW 13.6 (12.0-15.0) % Plt Count 209 (130-450) 10^3/uL MPV 8.3 (7.4-11.4) fL Neut # 8.9 H (1.5-6.6) 10^3/uL Lymph # 1.2 L (1.5-3.5) 10^3/uL Kane # 1.3 H (0.0-1.0) 10^3/uL Eos # 0.3 (0.0-0.7) 10^3/uL Baso # 0.0 (0.0-0.1) 10^3/uL Absolute Nucleated RBC 0.00 x10^3/uL Nucleated RBCs 0.0 /100WBC VBG pH 7.456 H (7.31-7.41) Ionized Calcium 1.08 L YES (1.15-1.33) mmol/L Sodium 141 (135-145) mmol/L Potassium 3.4 L (3.5-5.0) mmol/L Chloride 107 (101-111) mmol/L Carbon Dioxide 27 (21-32) mmol/L Anion Gap 7.0 (6-13) BUN 21 H (6-20) mg/dL Creatinine 0.9 (0.6-1.2) mg/dL Estimated GFR (MDRD) 84 L (>89) Glucose 113 H (70-100) mg/dL Calcium 8.1 L (8.5-10.3) mg/dL Phosphorus 2.5 (2.5-4.6) mg/dL Magnesium 2.1 (1.7-2.8) mg/dL Total Bilirubin 1.3 H (0.2-1.0) mg/dL AST 26 (10-42) IU/L ALT 24 (10-60) IU/L Alkaline Phosphatase 133 H (42-121) IU/L Total Protein 6.4 L (6.7-8.2) g/dL Albumin 2.4 L (3.2-5.5) g/dL Globulin 4.0 (2.1-4.2) g/dL Albumin/Globulin Ratio 0.6 L (1.0-2.2) Assessment/Plan - Problem List (1) Atrial fibrillation with RVR Impression: I called his gas line installer supervisor, Aleksandra Medel on 11/07/16. Her phone number is . She was not in the office but I spoke to the gas line installer supervisor on-call and reviewed the case with him. The only good thing out of this is that the chads score is 2 or lower. Anticoagulation not absolutely recommended. He does not recommend a change in my management. Change the amiodarone to 400 mg p.o. twice daily and watch for second-degree or third-degree heart block. The other problem is that the patient will go into sinus bradycardia with so much blockade going on. So we will use metoprolol and amiodarone and no other meds at this time. Other than holding the course, he does not recommend any other changes. Does not feel that the patient needs a higher level of care. Plan: Transitioned to amiodarone p.o. after being loaded by IV. Change 800 mg a day to 400 mg po bid Use IV beta-siddhartha as needed Resume Metroprolol XL and bid dosing not qd stop diltiazem Monitor closely on telemetry for sinus pause or sinus block Wait it out (2) Gangrenous cholecystitis Impression: Status post cholecystostomy Postop day #3 This was done for gangrenous cholecystitis. Continue Zosyn, day #4 (3) Hypophosphatemia Impression: initiate electrolyte replacement protocol
[2016-11-07] MEDS: METOPROLOL SUCCINATE 25 MG TABLET PO SCH ×2 (09:21→20:43)
[2016-11-07] MEDS: POTASSIUM CHLORIDE 20 MEQ/15 ML UDC PO SCH ×2 (11:23→13:44)
[2016-11-07] MEDS: ONDANSETRON 4 MG/2 ML VIAL IVP PRN ×2 (13:42→22:07)
[2016-11-07] MEDS ORDERED: SODIUM CHLORIDE FLUSH 0.9% 10 ML SYRINGE IVP ONE (14:02)
[2016-11-08] MEDS: CALCIUM CITRATE 250 MG TABLET PO SCH (00:31)
[2016-11-08] MEDS: PIPERACILLIN/TAZOBACTAM 4.5 GM in SODIUM CHLORIDE 0.9% MINIBAG 100 ML IV SCH ×2 (02:53→08:33)
[2016-11-08] MEDS: HYDROmorphone 1 MG/ML CARPUJECT IVP PRN (02:56)
[2016-11-08 05:31] LABS: BASOPHILS % (AUTO) 0.4 %; EOSINOPHILS # (AUTO) 0.3 10^3/uL (0.0-0.7); HCT - HEMATOCRIT 36.5 % (42.0-52.0); HGB - HEMOGLOBIN 11.8 g/dL (14.0-18.0); LYMPHOCYTES # (AUTO) 1.2 10^3/uL (1.5-3.5); LYMPHOCYTES % (AUTO) 10.6 %; MEAN CORPUSCULAR HGB CONC 32.2 g/dL (32.0-36.0); MEAN CORPUSCULAR VOLUME 83.6 fL (80.0-94.0); MEAN PLATELET VOLUME 8.1 fL (7.4-11.4); MONOCYTES # (AUTO) 1.4 10^3/uL (0.0-1.0); MONOCYTES % (AUTO) 11.9 %; NEUTROPHILS # (AUTO) 8.5 10^3/uL (1.5-6.6); NEUTROPHILS % (AUTO) 74.1 %; NUCLEATED RED BLOOD CELLS AUTO 0.1 /100WBC; RED BLOOD COUNT 4.37 10^6/uL (4.70-6.10); RED CELL DISTRIBUTION WIDTH 13.6 % (12.0-15.0); UNCORRECTED WHITE BLOOD COUNT 11.5 x10^3/uL; WHITE BLOOD COUNT 11.5 x10^3/uL (4.8-10.8)
[2016-11-08 05:49] LABS: ALBUMIN/GLOBULIN RATIO 0.6 (1.0-2.2); BUN - BLOOD UREA NITROGEN 24 mg/dL (6-20); CALCIUM 8.4 mg/dL (8.5-10.3); CARBON DIOXIDE - CO2 27 mmol/L (21-32); CHLORIDE 103 mmol/L (101-111); CREATININE 0.9 mg/dL (0.6-1.2); GFR - MDRD 84 (>89); GLUCOSE 121 mg/dL (70-100); PHOSPHORUS 3.5 mg/dL (2.5-4.6); POTASSIUM 3.8 mmol/L (3.5-5.0); SODIUM 139 mmol/L (135-145); TOTAL PROTEIN 6.5 g/dL (6.7-8.2)
[2016-11-08] MEDS: SODIUM CHLORIDE FLUSH 0.9% 10 ML SYRINGE IVP SCH (06:52)
[2016-11-08] MEDS ORDERED: PANTOPRAZOLE 40 MG TABLET PO SCH (07:00)
--- NOTE | 2016-11-08 08:19 | Discharge Plan ---
Discharge Plan Disposition: Home, Self Care Condition: Stable Prescriptions: Amiodarone HCl 400 mg PO BID #28 tablet HYDROmorphone [Dilaudid] 2 mg PO Q4H #10 tablet Metronidazole [Flagyl] 500 mg PO TID #9 tablet Levofloxacin [Levaquin] 500 mg PO DAILY #3 tablet Walker 1 each MC DAILY #1 each Diet: Cardiac Activity Restrictions: Activity as Tolerated Shower Restrictions: No Driving Restrictions: No Assistance Devices: Walker (front wheeled, folding, with seat) Instruction Topics: Tube Drainage Care, T Tube Care Dc Additional Instructions or Follow Up instructions: You were admitted to the hospital because of lower sternal chest pain that may have been angina from a heart attack. We found out that you were actually having a gallbladder attack as well as an infected gallbladder. You already have a known chronic history of atrial fibrillation and you are on Xarelto and metoprolol for this. When you were intubated for surgery and the abdomen was insufflated to take out your gallbladder the atrial fibrillation rate became severely uncontrolled. The removal of your gallbladder had to be stopped, and you had to be taken to the intensive care unit to control your heart rate. You did not have a heart attack. It took us several days of multiple medications to finally get your heart rate under control. You finally converted to sinus rhythm at noon on November 07. It has been 24 hours and you are controlled with amiodarone and metoprolol. Amiodarone still needs to be completely loaded into your bloodstream for full therapeutic dosing. You will be on 400 mg tablet twice a day for the next 2 weeks. You will then be on either 400 mg once a day or 200 mg twice a day depending on what your instructional manager says. Please make sure you get that next prescription in your visit with the Stockbroker so you have it ready before the 400 mg tablets run out in two weeks. You do not have a primary care provider on the [place] and we have referred you to [facility] who takes your insurance. The name and number have been given to you in a separate handout. Please follow-up with Dr. Frantz Johnson his office in the next 4 weeks by either phone call or visit. You will be advised about when you need to be seen to be prepared for surgery. Before you see Dr. Johnson , make sure you have seen a instructional manager that specializes in arrhythmia. You have identified [facility] as the place you want to go and I have given you two of the names from that office. Dr. Johnson will want your heart rate to be stable as possible before he takes you to the operating room again to take out your gallbladder. In the meantime you will finish a few more days of oral antibiotics. Eat small frequent low-fat meals. You can resume your Xarelto but I expect to stop it before your next surgery. If you have severe pain in the mid abdomen or right upper/left upper abdomen under your rib cage, fever, copious bleeding from your tube notify Dr. Johnson immediately. You may have to go back to the emergency room. Follow the instructions he has given you for the cholecystostomy tube. No Smoking: If you smoke, Please STOP! Call for help. Follow-up with: Frantz Johnson MD [Provider Admit Priv/Credential] - Caroline Carpenter MD [Physician No Access] -
[2016-11-08] MEDS: POTASSIUM CHLORIDE 20 MEQ/15 ML UDC PO SCH (08:32)
[2016-11-08] MEDS: AMIODARONE 200 MG TABLET PO SCH (09:07)
[2016-11-08] MEDS: METOPROLOL SUCCINATE 25 MG TABLET PO SCH (09:07)
[2016-11-08] MEDS: HYDROmorphone 2 MG TABLET PO PRN ×2 (09:13→13:27)
[2016-11-08] MEDS ORDERED: SOAP SUDS ENEMA 1 EACH RC ONE (10:09)
--- NOTE | 2016-11-08 10:13 | PROVIDER PROGRESS NOTE ---
Subjective - General Admit Date: 11/03/16 Procedure Date: 11/04/16 Post Op Days: 4 Procedure Performed: Laparoscopic cholecystostomy tube placement and umbilical herniorrhaphy - Review of Systems Wound/Incisions: positive: Drainage Drain Type: 19 Fr Derek in subhepatic space and 8 Fr Flores in the gallbladder Drain Output Description: Bilious in cholecystostomy tube and serosanguinous in Derek Approximate mls Output: Nothing recorded for cholecystostomy and 20 mL Derek General: positive: Fatigue (Feels very tired.), Chills (Slight chills.) HEENT: positive: No symptoms Pulmonary: positive: No symptoms Cardiovascular: positive: No symptoms. negative: Chest pain, Lightheadedness Gastrointestinal: positive: No symptoms, Flatus Genitourinary: positive: No symptoms Musculoskeletal: positive: No symptoms Skin: positive: No symptoms Psychiatric: positive: No symptoms Objective - Patient Data Vital Signs: Vital Signs x48h Temp Pulse Resp BP Pulse Ox 11/08/16 09:00 79 141/78 H 11/08/16 07:28 36.9 C 73 12 133/76 H 94 11/08/16 05:40 37.7 C H 79 14 123/68 94 Intake & Output: Intake and Output Totals x24h 11/06/16 11/07/16 11/08/16 23:59 23:59 23:59 Intake Total 1950 2855 460 Output Total 1315 1075 110 Balance 635 1780 350 - Lab Results Lab Results: 11/08/16 05:12 11/08/16 05:12 Other Lab Results: Lab Results x24hrs 11/08/16 11/08/16 Range/Units 05:12 05:12 WBC 11.5 H (4.8-10.8) x10^3/uL RBC 4.37 L (4.70-6.10) 10^6/uL Hgb 11.8 L (14.0-18.0) g/dL Hct 36.5 L (42.0-52.0) % MCV 83.6 (80.0-94.0) fL MCH 27.0 (27.0-31.0) pg MCHC 32.2 (32.0-36.0) g/dL RDW 13.6 (12.0-15.0) % Plt Count 226 (130-450) 10^3/uL MPV 8.1 (7.4-11.4) fL Neut # 8.5 H (1.5-6.6) 10^3/uL Lymph # 1.2 L (1.5-3.5) 10^3/uL Webb # 1.4 H (0.0-1.0) 10^3/uL Eos # 0.3 (0.0-0.7) 10^3/uL Baso # 0.0 (0.0-0.1) 10^3/uL Absolute Nucleated RBC 0.01 x10^3/uL Nucleated RBCs 0.1 /100WBC Sodium 139 (135-145) mmol/L Potassium 3.8 (3.5-5.0) mmol/L Chloride 103 (101-111) mmol/L Carbon Dioxide 27 (21-32) mmol/L Anion Gap 9.0 (6-13) BUN 24 H (6-20) mg/dL Creatinine 0.9 (0.6-1.2) mg/dL Estimated GFR (MDRD) 84 L (>89) Glucose 121 H (70-100) mg/dL Calcium 8.4 L (8.5-10.3) mg/dL Ionized Calcium NO Phosphorus 3.5 (2.5-4.6) mg/dL Magnesium 2.0 (1.7-2.8) mg/dL Total Bilirubin 1.0 (0.2-1.0) mg/dL AST 28 (10-42) IU/L ALT 26 (10-60) IU/L Alkaline Phosphatase 142 H (42-121) IU/L Total Protein 6.5 L (6.7-8.2) g/dL Albumin 2.4 L (3.2-5.5) g/dL Globulin 4.1 (2.1-4.2) g/dL Albumin/Globulin Ratio 0.6 L (1.0-2.2) - Current Medications Current Medications: Current Medications Generic Name Dose Route Start Last Admin Trade Name Freq PRN Reason Stop Dose Admin Amiodarone HCl 400 mg 11/07/16 09:05 11/08/16 09:07 Pacerone PO 400 mg BID MOLLY Administration Hydromorphone HCl 1 mg 11/04/16 08:07 11/08/16 02:56 Dilaudid Inj IVP 1 mg Q2HR PRN Administration PAIN Hydromorphone HCl 1 mg 11/08/16 08:46 11/08/16 09:13 Dilaudid PO 1 mg Q6HR PRN Administration Severe Pain Piperacillin Sod/Tazobactam 100 mls @ 200 mls/hr 11/04/16 08:00 11/08/16 08:33 Sod 4.5 gm/ Sodium Chloride IV 200 mls/hr Q6H MOLLY Administration Metoprolol Succinate 25 mg 11/07/16 10:00 11/08/16 09:07 Toprol Xl PO 25 mg BID MOLLY Administration Metoprolol Tartrate 5 mg 11/05/16 10:55 11/07/16 10:09 Lopressor Inj IVP 5 mg Q2H PRN Administration Hypertensive Emergency Morphine Sulfate 2 mg 11/02/16 22:46 11/04/16 20:03 Morphine IVP 2 mg Q2HR PRN Administration Chest Pain Ondansetron HCl 4 mg 11/02/16 22:50 11/07/16 22:07 Zofran Inj IVP 4 mg Q6HR PRN Administration Nausea / Vomiting Pantoprazole Sodium 40 mg 11/08/16 07:00 11/08/16 06:52 Protonix PO 40 mg QDAC MOLLY Administration Potassium Chloride 20 meq 11/06/16 09:00 11/08/16 08:32 PO 20 meq DAILYWM MOLLY Administration Sodium Chloride 10 ml 11/02/16 22:50 11/06/16 06:27 Normal Saline Flush 0.9% IVP 10 ml PRN PRN Administration NEEDED PER PROVIDER ORDERS Sodium Chloride 10 ml 11/03/16 06:00 11/08/16 06:52 Normal Saline Flush 0.9% IVP 10 ml Q8HR MOLLY Administration - Physical Exam Wound/Incisions: positive: Healing well General Appearance: positive: No acute distress Abdomen: positive: Non-tender Impression/Plan - Problem List Problem List: s/p laparoscopic cholecystostomy tube placement with perioperative tachycardia. HR now controlled with meds. No evidence of infection. Tolerating a regular diet but still awaiting bm. Enema Teach drain care ambulate
[2016-11-08] MEDS ORDERED: DOCUSATE SODIUM 100 MG CAPSULE PO SCH (11:00)
[2016-11-08 13:29] VITALS: BP 157/87
--- NOTE | 2016-11-09 09:26 | DISCHARGE SUMMARY ---
DATE OF ADMISSION: 11/03/2016 DATE OF DISCHARGE: 11/08/2016 PREVIOUS PRIMARY CARE PROVIDER: Aleksandra Medel MD; fax #[phone]. DISCHARGE DIAGNOSES 1. Gangrenous cholecystitis. 2. Atrial fibrillation with rapid ventricular response. 3. Epigastric abdominal pain. 4. Hypophosphatemia. 5. Hypokalemia. 6. Generalized weakness. DISCHARGE MEDICATIONS 1. A walker. He is buying his own on [employer], and I have given him a prescription to get reimbursed 2. Flexeril 10 mg p.o. t.i.d. p.r.n. 3. Metoprolol XL 25 mg p.o. daily. 4. Xarelto 20 mg p.o. daily. 5. Amiodarone 400 mg p.o. b.i.d. for 2 weeks. I have instructed him to make sure that he gets another prescription for a loading dose. He should be going on to 400 mg p.o. daily. Make sure he gets that from Cardiology. 6. Dilaudid 2 mg p.o. q.4 h. p.r.n. pain #10. 7. Flagyl 500 mg p.o. t.i.d. #9. 8. Levaquin 500 mg p.o. daily #3. PRINCIPAL PROCEDURES 1. Chest x-ray showing no infiltrate on 11/02/2016. 2. Abdomen/pelvis CT on 11/03/2016 with cholelithiasis and subtle evidence of cholecystitis and a tin y nonobstructing left renal stone. 3. Rule out DE, troponins, which were all negative at less than 0.04. 4. Umbilical herniorrhaphy. 5. Attempted laparoscopic cholecystectomy, stopped, with cholecystostomy tube in place. HOSPITAL COURSE: He is a 71-year-old man who says that he has had atrial fibrillation off and on all of his life. He says that with his Fitbit he can actually count the number of times per year he has t he abrupt onset of atrial fibrillation that resolves on its own. He also gives us a long history of _ event where his atrial fibrillation was so uncontrolled that they needed to cardiovert him mu ltiple, multiple times. In the end, he has been on Xarelto and metoprolol for rate control for when h e does go into atrial fibrillation, and he is followed by Aleksandra Medel MD, [facility] [place]. Her phone number is [phone]. Her fax number is [phone]. He just moved to [facility]. Retired from [employer] and had been lifting heavy boxes and had some th oracic back pain. On the day of admission, he had an abrupt onset of epigastric abdominal pain that roma wang attributed initially to the heavy lifting of boxes. The pain got so severe and radiating into the s ubsternal region with some nausea and diaphoresis his encouraged him to come to the hospital. We initially placed him in observation for a rule out DE. Serial cardiac troponins were negative. EKG s howed sinus rhythm and no acute changes. As the workup ensued, we thought that maybe he had a gallbladder problem, since CT of the abdomen and pelvis showed him to have some changes. He was scheduled for elective surgery, when Surgery felt salvador t was the problem. The patient had a successful umbilical hernia repair through a laparoscopic incisi on. As they were continuing to insufflate the patient for now the gallbladder resection, there was a very gangrenous, nasty looking gallbladder identified. However, the patient had already been in atria l fibrillation, and atrial fibrillation rate went into the 150s and 180s. In the OR, he received IV e smolol, Verapamil and loaded with 0.5 of digoxin. None of this broke his rate. He was now getting hyp otensive and diaphoretic, and as such, the case was abruptly stopped. He was transferred to the ICU a nd extubated in ICU rapidly, and the rest of his stay was spent trying to control his rate. We used m etoprolol, diltiazem drip, continued to load the digoxin. After 48 hours, I started an amiodarone dri p. He would have times where he would go back into sinus and drop into the 40s and 50s and then withi n 30 minutes to 2 hours later go back into atrial fibrillation again. Echocardiogram was done during this stay, and he has a tight left atrium and normal left ventricle function and no valvular heart di sease. I had already loaded him with amiodarone, continued him on IV metoprolol p.r.n. and had him on Cardiz em p.o. and metoprolol p.o. I called his advanced analytics associate, Aleksandra Medel MD; however, she was not paola ilable that day, and I spoke to her colleague who was on-call for her. He felt that our management wa s appropriate. He would recommend no other changes. Did not feel the patient needed a higher level of care. As such, we maintained the amiodarone drip, transitioned to oral. He received 3 step loading a nd was on 400 mg p.o. b.i.d. of amiodarone. On the day before discharge, he finally converted to sinu s and stayed in sinus rhythm around noon. Twenty-four hours later at discharge, he was still in sinus rhythm. He has generalized weakness from the atrial fibrillation, the surgery and is needing a walke r. He is moving very slowly. He has a cholecystostomy tube that is still draining brown, occasionally bloody fluid. Cardiology felt that it was okay to resume the Xarelto, but it was not absolutely nece ssary in that the patient's CHADS score was equivocal. I explained to the patient that he would have to stop the Xarelto a few days before surgery. It is planned that he will go to surgery to have an elective open cholecystectomy in the next [address] Johnson would like him to finish a total of combined oral and IV therapy of antibiotics for th e acute gangrenous cholecystitis. During his stay, he had hypokalemia and hypomagnesemia that was sup plemented. I have asked him to please establish himself with a new primary care provider since he now lives on [facility]. We have given him the office number to [facility], who accepts his insuran ce. We have also asked him to establish himself with a advanced analytics associate. He says that he is not going to see Dr. Medel because it is close to a [address] for him. Instead, he is going to choose to go to [facility]. It is about an hour and [address] from here. He will see [facility]. I have given him the names of the EPS specialist there. I am specifically asking if this katelin ent is a candidate for a pacer on the basis of preventing severe blockade when we do need to heavily load him for AFib rate control. Could he also be a candidate for ablation. He is discharged in stable condition, using Dilaudid p.r.n. for pain control, able to ambulate in the room with a walker slowly and able to keep food down. He still has some mild abdominal distention an d had an enema before he left. PHYSICAL EXAMINATION VITAL SIGNS: Temperature was 36.8, pulse was 80. He was sinus rhythm. Blood pressure 107/57, respirat ion 17, 94% on room air. GENERAL: He is an exceedingly, exceedingly pleasant, middle age, moderately obese white male who looks his stated age. Dianna accompanies him. NECK: Supple. LUNGS: The lungs are completely clear without crackles, rhonchi or wheezing. He has no increased resp iratory effort with walking in the hallway, speaking to me. HEART: He has a regular rate and rhythm with no murmurs. ABDOMEN: The abdomen is still bloated and distended. He has 2 catheters in the right upper quadrant. The lower catheter has a little bit of redness around the skin, but there is no heat, drainage, pain or tenderness. Dressing changes have been applied. The has been instructed on how to empty the tubes, and he an d his have been instructed in how to keep the tubes clean. I have asked him to return if he has fever, increasing bilateral flank pain or upper abdominal pain or if he starts to vomit. Greater than 30 minutes was spent in coordinating discharge. He is receiving a prescription for a wal ker. ADDENDUM/CORRECTION At discharge, his vital signs were 36.9, pulse 79, blood pressure 141/78. He was 94% on 0.5 L. I dictated the wrong vital signs from a different chart. JOB #: [id number] EXT JOB #:[id number]
== END 2016-11-08 13:45 | disposition home or self-care (01) | DRG 425 ==
LOC: ED 19:29 → OBS 22:50 → OBSVTOIN 11-03 19:27 → MS2 11-03 21:06 → ICU 11-04 18:55 → MS3 11-07 22:40
PROVIDERS: ADMIT Internal Medicine; ATTEND Specialist
PROC: 0DNT4ZZ (ICD-10-PCS; 2016-11-04)
PROC: 0F9440Z Drainage of Gallbladder with Drainage Device, Percutaneous Endoscopic Approach (ICD-10-PCS; principal; 2016-11-04 16:00)
DX: R10.13 Epigastric pain (principal); K80.20 Calculus of gallbladder without cholecystitis without obstruction; K80.00 Calculus of gallbladder with acute cholecystitis without obstruction; I10 Essential (primary) hypertension; Z85.46 Personal history of malignant neoplasm of prostate; I48.0 Paroxysmal atrial fibrillation; E83.39 Other disorders of phosphorus metabolism; E87.6 Hypokalemia; G47.33 Obstructive sleep apnea (adult) (pediatric); N20.0 Calculus of kidney; E66.9 Obesity, unspecified; Z68.36 Body mass index [BMI] 36.0-36.9, adult; K42.9 Umbilical hernia without obstruction or gangrene; Z79.02 Long term (current) use of antithrombotics/antiplatelets
CPT/HCPCS: 36415; 71010; 74177; 80053; 81001; 82150; 82330; 83605; 83690; 83735; 83880; 84100; 84484; 85025; 85651; 86141; 87070; 87077; 87086; 87150; 87205; 93005; 93306; 96361; 96374; 96375; 96376; 99285

== ENCOUNTER 2017-08-19 15:33 | Outpatient (CLI) | payer MEDICARE ==
[2017-08-19 15:57] LABS: INR 2.7 (0.8-1.2); PT - PROTHROMBIN TIME 29.7 secs (9.9-12.6)
== END 2017-08-19 15:34 | disposition home or self-care (01) ==
LOC: LAB 15:33
PROVIDERS: ATTEND Pharmacist
DX: I48.91 Unspecified atrial fibrillation (principal); Z79.01 Long term (current) use of anticoagulants
CPT/HCPCS: 36415; 85610

== ENCOUNTER 2017-08-24 11:36 | Outpatient (CLI) | payer MEDICARE ==
[2017-08-24 12:45] LABS: INR 2.2 (0.8-1.2); PT - PROTHROMBIN TIME 23.6 secs (9.9-12.6)
== END 2017-08-24 11:37 | disposition home or self-care (01) ==
LOC: LAB 11:36
PROVIDERS: ATTEND Pharmacist
DX: I48.91 Unspecified atrial fibrillation (principal); Z79.01 Long term (current) use of anticoagulants
CPT/HCPCS: 36415; 85610

== ENCOUNTER 2017-08-30 12:22 | Outpatient (CLI) | payer MEDICARE, BC ==
[2017-08-30 12:49] LABS: INR 4.3 (0.8-1.2); PT - PROTHROMBIN TIME 46.3 secs (9.9-12.6)
== END 2017-08-30 12:23 | disposition home or self-care (01) ==
LOC: LAB 12:22
PROVIDERS: ATTEND Pharmacist
DX: I48.91 Unspecified atrial fibrillation (principal); Z79.01 Long term (current) use of anticoagulants
CPT/HCPCS: 36415; 85610

== ENCOUNTER 2017-09-06 11:30 | Outpatient (CLI) | payer MEDICARE ==
[2017-09-06 12:24] LABS: INR 2.2 (0.8-1.2); PT - PROTHROMBIN TIME 24.4 secs (9.9-12.6)
== END 2017-09-06 11:31 | disposition home or self-care (01) ==
LOC: LAB 11:30
PROVIDERS: ATTEND Pharmacist
DX: I48.91 Unspecified atrial fibrillation (principal); Z79.01 Long term (current) use of anticoagulants
CPT/HCPCS: 85610

== ENCOUNTER 2017-09-13 11:05 | Outpatient (CLI) | payer MEDICARE ==
[2017-09-13 11:53] LABS: INR 2.2 (0.8-1.2); PT - PROTHROMBIN TIME 23.6 secs (9.9-12.6)
== END 2017-09-13 11:06 | disposition home or self-care (01) ==
LOC: LAB 11:05
PROVIDERS: ATTEND Pharmacist
DX: I48.91 Unspecified atrial fibrillation (principal); Z79.01 Long term (current) use of anticoagulants
CPT/HCPCS: 36415; 85610

== ENCOUNTER 2017-09-27 12:13 | Outpatient (CLI) | payer MEDICARE, BC ==
[2017-09-27 12:53] LABS: INR 1.8 (0.8-1.2); PT - PROTHROMBIN TIME 19.8 secs (9.9-12.6)
== END 2017-09-27 12:14 | disposition home or self-care (01) ==
LOC: LAB 12:13
PROVIDERS: ATTEND Pharmacist
DX: Z79.01 Long term (current) use of anticoagulants (principal); I48.91 Unspecified atrial fibrillation
CPT/HCPCS: 36415; 85610

== ENCOUNTER 2017-10-11 11:17 | Outpatient (CLI) | payer MEDICARE ==
[2017-10-11 11:33] LABS: INR 2.1 (0.8-1.2); PT - PROTHROMBIN TIME 23.2 secs (9.9-12.6)
== END 2017-10-11 11:18 | disposition home or self-care (01) ==
LOC: LAB 11:17
PROVIDERS: ATTEND Pharmacist
DX: I48.91 Unspecified atrial fibrillation (principal); Z79.01 Long term (current) use of anticoagulants
CPT/HCPCS: 36415; 85610

== ENCOUNTER 2017-11-01 11:51 | Outpatient (CLI) | payer MEDICARE, BC ==
[2017-11-01 12:15] LABS: INR 2.4 (0.8-1.2); PT - PROTHROMBIN TIME 26.3 secs (9.9-12.6)
== END 2017-11-01 11:52 | disposition home or self-care (01) ==
LOC: LAB 11:51
PROVIDERS: ATTEND Pharmacist
DX: I48.91 Unspecified atrial fibrillation (principal); Z79.01 Long term (current) use of anticoagulants
CPT/HCPCS: 36415; 85610

== ENCOUNTER 2017-11-29 11:42 | Outpatient (CLI) | payer MEDICARE ==
[2017-11-29 12:36] LABS: INR 2.3 (0.8-1.2); PT - PROTHROMBIN TIME 25.2 secs (9.9-12.6)
== END 2017-11-29 11:43 | disposition home or self-care (01) ==
LOC: LAB 11:42
PROVIDERS: ATTEND Pharmacist
DX: Z79.01 Long term (current) use of anticoagulants (principal); I48.91 Unspecified atrial fibrillation
CPT/HCPCS: 36415; 85610

== ENCOUNTER 2017-12-27 12:21 | Outpatient (CLI) | payer MEDICARE, BC ==
[2017-12-27 12:54] LABS: INR 2.5 (0.8-1.2); PT - PROTHROMBIN TIME 27.4 secs (9.9-12.6)
== END 2017-12-27 12:22 | disposition home or self-care (01) ==
LOC: LAB 12:21
PROVIDERS: ATTEND Pharmacist
DX: Z79.01 Long term (current) use of anticoagulants (principal); I48.91 Unspecified atrial fibrillation
CPT/HCPCS: 36415; 85610

== ENCOUNTER 2018-01-27 11:58 | Outpatient (CLI) | payer MEDICARE, BC ==
[2018-01-27 12:26] LABS: INR 3.2 (0.8-1.2); PT - PROTHROMBIN TIME 35.7 secs (9.9-12.6)
== END 2018-01-27 11:59 | disposition home or self-care (01) ==
LOC: LAB 11:58
PROVIDERS: ATTEND Pharmacist
DX: Z79.01 Long term (current) use of anticoagulants (principal); I48.91 Unspecified atrial fibrillation
CPT/HCPCS: 36415; 85610

== ENCOUNTER 2018-02-11 09:59 | Outpatient (CLI) | payer MEDICARE, BC ==
[2018-02-11 10:22] LABS: INR 2.6 (0.8-1.2); PT - PROTHROMBIN TIME 28.7 secs (9.9-12.6)
== END 2018-02-11 10:00 | disposition home or self-care (01) ==
LOC: LAB 09:59
PROVIDERS: ATTEND Pharmacist
DX: I48.91 Unspecified atrial fibrillation (principal); Z79.01 Long term (current) use of anticoagulants
CPT/HCPCS: 36415; 85610

== ENCOUNTER 2018-03-07 11:56 | Outpatient (CLI) | payer MEDICARE, BC ==
[2018-03-07 13:08] LABS: INR 2.4 (0.8-1.2); PT - PROTHROMBIN TIME 26.8 secs (9.9-12.6)
== END 2018-03-07 11:57 | disposition home or self-care (01) ==
LOC: LAB 11:56
PROVIDERS: ATTEND Pharmacist
DX: Z79.01 Long term (current) use of anticoagulants (principal); I48.91 Unspecified atrial fibrillation
CPT/HCPCS: 36415; 85610

== ENCOUNTER 2018-04-04 11:49 | Outpatient (CLI) | payer MEDICARE, BC ==
[2018-04-04 12:13] LABS: INR 2.1 (0.8-1.2); PT - PROTHROMBIN TIME 23.7 secs (9.9-12.6)
== END 2018-04-04 11:50 | disposition home or self-care (01) ==
LOC: LAB 11:49
PROVIDERS: ATTEND Pharmacist
DX: I48.91 Unspecified atrial fibrillation (principal); Z79.01 Long term (current) use of anticoagulants
CPT/HCPCS: 36415; 85610

== ENCOUNTER 2018-05-02 12:04 | Outpatient (CLI) | payer MEDICARE, BC ==
[2018-05-02 12:40] LABS: INR 1.8 (0.8-1.2)
== END 2018-05-02 12:05 | disposition home or self-care (01) ==
LOC: LAB 12:04
PROVIDERS: ATTEND Pharmacist
DX: I48.91 Unspecified atrial fibrillation (principal); Z79.01 Long term (current) use of anticoagulants
CPT/HCPCS: 36415; 85610

== ENCOUNTER 2018-05-16 11:44 | Outpatient (CLI) | payer MEDICARE, BC ==
[2018-05-16 12:05] LABS: INR 2.4 (0.8-1.2); PT - PROTHROMBIN TIME 26.7 secs (9.9-12.6)
== END 2018-05-16 11:45 | disposition home or self-care (01) ==
LOC: LAB 11:44
PROVIDERS: ATTEND Pharmacist
DX: Z79.01 Long term (current) use of anticoagulants (principal); I48.91 Unspecified atrial fibrillation
CPT/HCPCS: 36415; 85610

== ENCOUNTER 2018-06-07 12:09 | Outpatient (CLI) | payer MEDICARE, BC ==
[2018-06-07 12:49] LABS: INR 2.5 (0.8-1.2); PT - PROTHROMBIN TIME 27.4 secs (9.9-12.6)
== END 2018-06-07 12:10 | disposition home or self-care (01) ==
LOC: LAB 12:09
PROVIDERS: ATTEND Pharmacist
DX: I48.91 Unspecified atrial fibrillation (principal); Z79.01 Long term (current) use of anticoagulants
CPT/HCPCS: 36415; 85610

== ENCOUNTER 2018-07-05 13:17 | Outpatient (CLI) | payer MEDICARE, BC | END 2018-07-05 13:18 | disposition home or self-care (01) | LOC: LAB 13:17 | PROVIDERS: ATTEND Pharmacist | DX: I48.91 Unspecified atrial fibrillation (principal); Z79.01 Long term (current) use of anticoagulants | CPT/HCPCS: 85610 ==

== ENCOUNTER 2018-07-20 10:47 | Outpatient (CLI) | payer MEDICARE, BC | END 2018-07-20 10:48 | disposition home or self-care (01) | LOC: LAB 10:47 | PROVIDERS: ATTEND Pharmacist | DX: Z79.01 Long term (current) use of anticoagulants (principal); I48.91 Unspecified atrial fibrillation | CPT/HCPCS: 85610 ==

== ENCOUNTER 2018-07-27 08:00 | Outpatient (CLI) | payer MEDICARE, BC | END 2018-07-27 23:59 | disposition home or self-care (01) | LOC: LAB 08:00 | PROVIDERS: ATTEND Pharmacist | DX: I48.91 Unspecified atrial fibrillation (principal); Z79.01 Long term (current) use of anticoagulants | CPT/HCPCS: 85610 ==

== ENCOUNTER 2018-08-11 13:37 | Outpatient (CLI) | payer MEDICARE, BC | END 2018-08-11 13:38 | disposition home or self-care (01) | LOC: LAB 13:37 | PROVIDERS: ATTEND Pharmacist | DX: Z79.01 Long term (current) use of anticoagulants (principal); I48.91 Unspecified atrial fibrillation | CPT/HCPCS: 85610 ==

== ENCOUNTER 2018-09-13 11:54 | Outpatient (CLI) | payer MEDICARE, BC | END 2018-09-13 11:55 | disposition home or self-care (01) | LOC: LAB 11:54 | PROVIDERS: ATTEND Pharmacist | DX: I48.91 Unspecified atrial fibrillation (principal); Z79.01 Long term (current) use of anticoagulants | CPT/HCPCS: 85610 ==

== ENCOUNTER 2018-11-03 11:51 | Outpatient (CLI) | payer MEDICARE, BC | END 2018-11-03 11:52 | disposition home or self-care (01) | LOC: LAB 11:51 | PROVIDERS: ATTEND Pharmacist | DX: I48.91 Unspecified atrial fibrillation (principal); Z79.01 Long term (current) use of anticoagulants | CPT/HCPCS: 85610 ==

== ENCOUNTER 2019-03-02 13:51 | Outpatient (CLI) | payer MEDICARE, BC | END 2019-03-02 13:52 | disposition home or self-care (01) | LOC: LAB 13:51 | PROVIDERS: ATTEND Pharmacist | DX: Z79.01 Long term (current) use of anticoagulants (principal); I48.91 Unspecified atrial fibrillation | CPT/HCPCS: 85610 ==

== ENCOUNTER 2019-05-25 13:47 | Outpatient (CLI) | payer MEDICARE, BC | END 2019-05-25 13:48 | disposition home or self-care (01) | LOC: LAB 13:47 | PROVIDERS: ATTEND Pharmacist | DX: I48.91 Unspecified atrial fibrillation (principal); Z79.01 Long term (current) use of anticoagulants | CPT/HCPCS: 85610 ==

== ENCOUNTER 2021-01-10 12:33 | Outpatient (CLI) | payer MEDICARE, BC | END 2021-01-10 23:59 | disposition critical access hospital (66) | LOC: EMS 12:33 | DX: N36.8 Other specified disorders of urethra (principal) | CPT/HCPCS: A0425; A0429 ==

== ENCOUNTER 2021-01-10 12:39 | Emergency (ER) | payer MEDICARE, BC ==
--- NOTE | 2021-01-10 13:11 | ED Physician Documentation ---
PD HPI MALE - Stated complaint Stated Complaint: MALE /CATH ISSUE - Chief complaint Chief Complaint: Abd Pain - History obtained from History obtained from: Patient, EMS - History of Present Illness Timing - duration: Days (2) Timing - details: Gradual onset Pain level max: 0 Pain level now: 0 Associated symptoms: Hematuria. No: Dysuria, Urinary frequency, Unable to urinate - Additional information Additional information: 75-year-old male remote history of prostate cancer. He states that he is self catheterizes 2-3 times a week. The last self-catheterization he noted is a small amount of blood. He states that since that time has had increasing blood from the urethra. He is on Xarelto. Patient states he has had UTIs before. Not currently having any pain or burning when he does urinate without catheterization Review of Systems Constitutional: denies: Fever, Chills Respiratory: denies: Cough GI: denies: Abdominal Pain, Nausea, Vomiting, Diarrhea Skin: denies: Rash Neurologic: denies: Headache PD PAST MEDICAL HISTORY - Past Medical History Cardiovascular: Atrial fibrillation Respiratory: Sleep apnea GI: Cholelithiasis - Present Medications Home Medications: Ambulatory Orders Medication Instructions Recorded Confirmed Metoprolol Succinate 25 mg PO DAILY PM 11/02/16 01/10/21 Rivaroxaban [Xarelto] 20 mg PO DAILY 11/02/16 01/10/21 - Allergies Allergies/Adverse Reactions: Allergies Allergy/AdvReac Type Severity Reaction Status Date / Time No Known Drug Allergies Allergy Verified 01/10/21 12:46 - Social History Does the pt smoke?: No Smoking Status: Never smoker Does the pt drink ETOH?: Yes Does the pt have substance abuse?: No - Immunizations Immunizations are current?: Yes - POLST Patient has POLST: No PD ED PE NORMAL - Vitals Vital signs reviewed: Yes - General General: Alert and oriented X 3, No acute distress, Well developed/nourished - HEENT HEENT: Moist mucous membranes - Neck Neck: Supple, no meningeal sign - Abdomen Abdomen: Soft, Non tender, Non distended - Derm Derm: Warm and dry - Extremities Extremities: No edema - Neuro Neuro: Alert and oriented X 3 - Psych Psych: Normal mood, Normal affect Results - Vitals Vitals: Vital Signs - 24 hr 01/10/21 01/10/21 01/10/21 12:47 14:50 16:52 Temperature 37.2 C 37 C Heart Rate 74 68 63 Respiratory 18 10 L 16 Rate Blood Pressure 155/84 H 181/96 H 139/89 H O2 Saturation 97 98 98 Oxygen O2 Source Room air - Labs Labs: Laboratory Tests 01/10/21 15:57 Urine Color YELLOW Urine Clarity HAZY Urine pH 7.0 Ur Specific [place] 1.015 Urine Protein NEGATIVE Urine Glucose (UA) NEGATIVE Urine Ketones NEGATIVE Urine Occult Blood LARGE H Urine Nitrite NEGATIVE Urine Bilirubin NEGATIVE Urine Urobilinogen 0.2 (NORMAL) Ur Leukocyte Esterase NEGATIVE Urine RBC TNTC H Urine WBC 0-3 Ur Squamous Epith Cells NONE SEEN Urine Bacteria None Seen Ur Microscopic Review INDICATED Urine Culture Comments NOT INDICATED PD MEDICAL DECISION MAKING - ED course Complexity details: reviewed results, re-evaluated patient, considered differential, d/w patient ED course: A Flores catheter was placed. Urine is clear. Likely urethral trauma from self- catheterization. We will leave the Flores catheter in place and have him follow- up with his urologist in about a week. Patient counseled regarding signs and symptoms for which I believe and urgent re-evaluation would be necessary. Patient with good understanding of and agreement to plan and is comfortable going home at this time This document was made in part using voice recognition software. While efforts are made to proofread this document, sound alike and grammatical errors may occur. Departure - Departure Disposition: 01 Home, Self Care Clinical Impression: Urethral bleeding Hematuria Qualifiers: Hematuria type: gross Qualified Code(s): R31.0 - Gross hematuria Condition: Good Instructions: ED Catheter Care Flores Follow-Up: Yoshi Rudd MD [Primary Care Provider] - Rose Marie Obregon MD [Physician No Access] - Rose Marie Reed MD [Provider Admit Priv/Credential] - Ryder Ledesma MD [Physician No Access] - RAMEZ AGEE [Physician No Access] - Comments: Please follow-up with a urologist for further care. The catheter will need to be left in for at least a week. This will help to prevent any stricturing or scarring. The catheter should be removed with a urologist.
[2021-01-10] MEDS: LIDOCAINE 2% URO-JET 5 ML SYRINGE UR STA ×2 (14:30→14:53)
[2021-01-10 16:03] LABS: BILIRUBIN,URINE NEGATIVE (NEGATIVE); GLUCOSE, URINE (UA) NEGATIVE (NEGATIVE); KETONES,URINE (UA) NEGATIVE (NEGATIVE); LEUKOCYTE ESTERASE, URINE NEGATIVE (NEGATIVE); NITRITE,URINE NEGATIVE (NEGATIVE); OCCULT BLOOD,URINE LARGE (NEGATIVE); PROTEIN,URINE NEGATIVE (NEGATIVE); UROBILINOGEN,URINE 0.2 (NORMAL) E.U./dL (NORMAL)
[2021-01-10 16:05] LABS: CLARITY,URINE HAZY (CLEAR)
[2021-01-10 16:49] LABS: BACTERIA,URINE None Seen /HPF (None Seen); RBC,URINE TNTC /HPF (0-5); SQUAMOUS EPITHELIAL CELL,UR NONE SEEN (<= Few); WBC,URINE 0-3 /HPF (0-3)
[2021-01-10 16:53] VITALS: BP 139/89
== END 2021-01-10 17:21 | disposition home or self-care (01) ==
LOC: EDUNIT# → ED 12:39
DX: N36.8 Other specified disorders of urethra (principal); R31.0 Gross hematuria
CPT/HCPCS: 51702; 81001; 81003; 87086; 99283

== ENCOUNTER 2021-01-23 14:05 | Outpatient (CLI) | payer MEDICARE, BC ==
[2021-01-23 14:41] LABS: BASOPHILS # (AUTO) 0.1 10^3/uL (0.0-0.1); BASOPHILS % (AUTO) 0.7 %; EOSINOPHILS # (AUTO) 0.3 10^3/uL (0.0-0.7); EOSINOPHILS % (AUTO) 2.7 %; HCT - HEMATOCRIT 41.6 % (42.0-52.0); HGB - HEMOGLOBIN 13.2 g/dL (14.0-18.0); LYMPHOCYTES % (AUTO) 19.7 %; MEAN CORPUSCULAR HEMOGLOBIN 26.8 pg (27.0-31.0); MEAN CORPUSCULAR HGB CONC 31.7 g/dL (32.0-36.0); MEAN CORPUSCULAR VOLUME 84.6 fL (80.0-94.0); MONOCYTES % (AUTO) 9.7 %; NEUTROPHILS # (AUTO) 6.9 10^3/uL (1.5-6.6); NEUTROPHILS % (AUTO) 66.9 %; PLT - PLATELET COUNT 305 10^3/uL (130-450); RED BLOOD COUNT 4.92 10^6/uL (4.70-6.10); RED CELL DISTRIBUTION WIDTH 13.9 % (12.0-15.0); WHITE BLOOD COUNT 10.4 x10^3/uL (4.8-10.8)
== END 2021-01-23 14:06 | disposition home or self-care (01) ==
LOC: LAB 14:05
PROVIDERS: ATTEND Internal Medicine Cardiovascular Disease
DX: R31.9 Hematuria, unspecified (principal)
CPT/HCPCS: 36415; 85025